=== PATIENT | female | born 1950 | race Caucasian/White ===

== ENCOUNTER 2019-08-11 09:36 | Outpatient (CLI) | payer MEDICARE, OTHER, SELFPAY ==
--- NOTE | 2019-08-11 09:54 | MM_ITS ---
WS: [id number] BILATERAL SCREENING DIGITAL MAMMOGRAM WITH CAD HISTORY: SCREENING COMPARISON: 04/22/2018 and 04/10/2017 Bilateral CC and MLO views submitted. Computer aided detection analyzed. Breast composition: The breasts are heterogeneously dense, which may obscure small masses. No suspici ous masses, microcalcifications or architectural distortion. Benign calcification central LEFT breast . MM/[place] [id number] IMPRESSION: BI-RADS: 2-Benign FOLLOW UP: 1 Year Follow-up
== END 2019-08-11 09:37 | disposition home or self-care (01) ==
LOC: RADSHAW 09:42
PROVIDERS: PCP Nurse Practitioner; Visit Provider Nurse Practitioner
DX: Z12.31 Encounter for screening mammogram for malignant neoplasm of breast (principal)
CPT/HCPCS: 77067

== ENCOUNTER 2020-09-12 12:51 | Outpatient (CLI) | payer MEDICARE, OTHER, SELFPAY ==
--- NOTE | 2020-09-12 12:58 | XR_ITS ---
WS: [id number] Left hip, AP and frog leg views, 09/12/2020 Clinical Data: ACUTE LOW BACK PAIN W/LEFT SIDED SCIATICA Comparison: None. Findings: No fractures or dislocations are seen. The left hip joint is intact. There is a prominent acetabular lip. No sclerosis, erosion or narrowing is seen. The soft tissues are not remarkable. The adjacent pe lvis is normal. The left SI joint and the pubic symphysis are normal. XR/XR hip LT 2-3V wo/w pel* [id number] Impression: Mild osteoarthritis of the left hip. Tonnis classification: grade 1: sclerosis of femoral head and acetabulum or sli ght joint space narrowing or slight lipping at joint margins
== END 2020-09-12 12:52 | disposition home or self-care (01) ==
PROVIDERS: PCP Nurse Practitioner; Visit Provider Nurse Practitioner
DX: M54.42 Lumbago with sciatica, left side (principal); M16.12 Unilateral primary osteoarthritis, left hip
CPT/HCPCS: 73502

== ENCOUNTER 2020-10-03 13:04 | Outpatient (CLI) | payer MEDICARE, OTHER, SELFPAY ==
--- NOTE | 2020-10-03 13:14 | MM_ITS ---
WS: [id number] BILATERAL DIGITAL SCREENING MAMMOGRAPHY WITH CAD CLINICAL INFORMATION: SCREENING HISTORY: Screening mammogram. No current complaints. COMPARISON: August 11, 2019 TECHNIQUE: Bilateral CC and MLO views. FINDINGS: The breasts are composed of heterogeneous fibroglandular density tissue, which can limit the detectio n of small underlying mass lesions. A few punctate calcifications. No suspicious mass, asymmetry, ashkan cifications, or architectural distortion. No evidence of malignancy. MM/[place] [id number] IMPRESSION: BI-RADS: 2-Benign FOLLOW UP: 1 Year Follow-up Recommend return to annual screening mammography.
== END 2020-10-03 13:05 | disposition home or self-care (01) ==
LOC: RADSHAW 13:12
PROVIDERS: PCP Nurse Practitioner; Visit Provider Nurse Practitioner
DX: Z12.31 Encounter for screening mammogram for malignant neoplasm of breast (principal)
CPT/HCPCS: 77067

== ENCOUNTER 2021-11-11 12:46 | Outpatient (CLI) | payer MEDICARE, SELFPAY ==
--- NOTE | 2021-11-11 13:19 | MM_ITS ---
WS: [id number] BILATERAL 3D TOMOSYNTHESIS DIGITAL SCREENING MAMMOGRAPHY WITH CAD CLINICAL INFORMATION: SCREENING HISTORY: Screening mammogram. No current complaints. COMPARISON: October 03, 2020 TECHNIQUE: Bilateral CC and MLO views. FINDINGS: The breasts are composed of heterogeneous fibroglandular density tissue, which can limit the detectio n of small underlying mass lesions. A few tiny punctate calcifications. No suspicious mass, asymmetry , calcifications, or architectural distortion. No evidence of malignancy. MM/[place] [id number] IMPRESSION: BI-RADS: 2-Benign FOLLOW UP: 1 Year Follow-up Recommend return to annual screening mammography.
== END 2021-11-11 12:47 | disposition home or self-care (01) ==
LOC: RAD 12:50
PROVIDERS: PCP Nurse Practitioner Family; Visit Provider Nurse Practitioner Family
DX: Z12.31 Encounter for screening mammogram for malignant neoplasm of breast (principal)
CPT/HCPCS: 77063; 77067

== ENCOUNTER 2022-07-09 11:28 | Outpatient (CLI) | payer MEDICARE, SELFPAY ==
--- NOTE | 2022-07-09 11:47 | CT_ITS ---
WS: [id number] CT NECK WITH CONTRAST HISTORY: RIGHT ANTERIOR CERVICAL LYMPH NODE TECHNIQUE: Contiguous 5 mm axial images are performed through the neck with intravenous contrast. Sag ittal and coronal reformats are also submitted. All CT scans at [facility] use at least one o f these dose optimization techniques: automated exposure control; mA and/or kV adjustment per patient size (includes targeted exams where dose is matched to clinical indication); or iterative reconstruc tion. CONTRAST: CONTRAST: Omnipaque 350; 100 mL IV. DLP: 133.09 mGy.cm COMPARISON: None available. Prominence and thickening and increased vascularity involving the lingual tonsils bilaterally but gre atest on the RIGHT. There is asymmetric soft tissue involving the RIGHT lingual tonsil measuring 13 x 11 mm. Oral surface of the tonsil is very irregular. Direct visualization is recommended. The mild a symmetry and increased soft tissue extends into the RIGHT palatine tonsil with narrowing of the RIGHT vallecula. Torus tubarius and fossa of Rosenmuller and parapharyngeal fat are normal. Benign-appearing cervical chain lymph nodes. Marker is placed along the RIGHT lateral neck. There is an underlying normal-appearing lymph node measuring 5 mm in short axis diameter. No enlarged lymph no reece. Visualized submandibular glands, parotid glands and thyroid are negative. Degenerative disc disease is advanced at C5-6 and C6-7. Visualized portions of the skull base demonstrate no abnormalities. Orbits and globes are within norm al limits. No soft tissue masses. Marked mucoperiosteal thickening in the sinus cavities bilaterally. Lung apices are clear. CT/CT neck w con* [id number] IMPRESSION: 1. No significant cervical chain lymphadenopathy. Palpable marker along the RI GHT neck corresponds to a normal-appearing lymph node. 2. Enlarged, mildly hypervascular lingual tonsils. Slightly greater enlargemen t on the RIGHT measuring 13 x 11 mm. Bilateral finding. May be normal for this patient but is masslike and needs to be further evaluated by ENT to exclude tina plasm involving the base of the tongue and tonsils.
[2022-07-09 12:10] LABS: Blood Urea Nitrogen 10 mg/dL (8-23)
[2022-07-09] MEDS: iohexol 350 mg/mL 500 mL Btl (per mL) IV (12:30)
== END 2022-07-09 11:29 | disposition home or self-care (01) ==
PROVIDERS: PCP Nurse Practitioner Family; Visit Provider Family Medicine
DX: R59.0 Localized enlarged lymph nodes (principal); J35.1 Hypertrophy of tonsils
CPT/HCPCS: 70491; 82565; 84520; Q9967

== ENCOUNTER → 2022-08-08 07:35 | Outpatient (BNVA) | payer MEDICARE, SELFPAY | PROVIDERS: PCP Nurse Practitioner Family; Visit Provider Otolaryngology | DX: Z71.1 Person with feared health complaint in whom no diagnosis is made (principal); M26.621 Arthralgia of right temporomandibular joint | CPT/HCPCS: 99203 ==

== ENCOUNTER 2022-11-19 12:19 | Outpatient (CLI) | payer MEDICARE, SELFPAY ==
--- NOTE | 2022-11-19 13:28 | MM_ITS ---
WS: [id number] BILATERAL SCREENING DIGITAL TOMOSYNTHESIS MAMMOGRAM WITH CAD HISTORY: SCREENING COMPARISON: 11/11/2021 and 10/03/2020 Bilateral CC and MLO views with tomosynthesis and synthetic mammography submitted. Computer aided det ection analyzed. Breast composition: There are scattered areas of fibroglandular density. No suspicious masses, microc alcifications or architectural distortion. IMPRESSION: MM/[place] [id number] BI-RADS: 1-Negative FOLLOW UP: 1 Year Follow-up
== END 2022-11-19 12:20 | disposition home or self-care (01) ==
LOC: RAD 12:19 → MOBLMAM 13:27
PROVIDERS: PCP Nurse Practitioner Family; Visit Provider Nurse Practitioner Family
DX: Z12.31 Encounter for screening mammogram for malignant neoplasm of breast (principal)
CPT/HCPCS: 77063; 77067

== ENCOUNTER 2023-11-24 12:16 | Outpatient (CLI) | payer MEDICARE, SELFPAY ==
--- NOTE | 2023-11-24 12:23 | XRR_ITS ---
PROCEDURE INFORMATION: Exam: XR Lumbosacral Spine Exam date and time: 11/24/2023 12:33 PM Age: 73 years old Clinical indication: Low back pain; Patient HX: Lower back pain when lying down, pain radiates from neck down to lower back TECHNIQUE: Imaging protocol: Radiologic exam of the lumbosacral spine. Views: 4 or 5 views. COMPARISON: CR XR thoracolumbar junct [id number] 11/24/2023 12:33 PM FINDINGS: Bones/joints: Mild dextrocurvature of the lumbar spine. Minimal anterolisthesis of L5 on S1 by 2 mm. Anterolisthesis of L4 on L5 by proximally 4 mm. Moderate degenerative disc disease from L1 through L4. Marked degenerative disc disease lower thoracic spine. Moderate degenerative changes lower lumbar spine facet joints. No evidence of fracture or pars defect. Soft tissues: Unremarkable. Gastrointestinal tract: Moderate amount of colonic stool. XR/XR lumbar spine min 4V [id number] IMPRESSION: No acute pathology. Dextrocurvature with features of degenerative disc and facet disease as detailed above.
--- NOTE | 2023-11-24 12:23 | XRR_ITS ---
PROCEDURE INFORMATION: Exam: XR Thoracolumbar Spine Exam date and time: 11/24/2023 12:33 PM Age: 73 years old Clinical indication: Low back pain; Patient HX: Lower back pain when lying down, pain radiates from neck down to lower back TECHNIQUE: Imaging protocol: Radiologic exam of the thoracolumbar spine. Views: 2 views. COMPARISON: CR XR lumbar spine min 4V [id number] 11/24/2023 12:33 PM FINDINGS: Bones/joints: Moderate degenerative disc disease of the visualized thoracolumbar spine. No acute fracture or dislocation. Minimal reverse listhesis of L1 on L2. Soft tissues: Unremarkable. Gastrointestinal tract: Moderate amount of colonic stool. XR/XR thoracolumbar junct [id number] IMPRESSION: Moderate degenerative disc disease with no acute pathology evident.
--- NOTE | 2023-11-24 12:29 | MM_ITS ---
WS: [id number] BILATERAL 3D TOMOSYNTHESIS DIGITAL SCREENING MAMMOGRAPHY WITH CAD CLINICAL INFORMATION: SCREENING HISTORY: Screening mammogram. No current complaints. COMPARISON: 2022 TECHNIQUE: Bilateral CC and MLO views. FINDINGS: The breasts are composed of heterogeneous fibroglandular density tissue, which can limit the detectio n of small underlying mass lesions. No suspicious mass, asymmetry, calcifications, or architectural d istortion. No evidence of malignancy. MM/[place] [id number] IMPRESSION: DENSITY:The breasts are heterogeneously dense, which may obscure small masses. BI-RADS: 1 - Negative FOLLOW UP: 1 Year Follow-up Recommend return to annual screening mammography.
== END 2023-11-24 12:17 | disposition home or self-care (01) ==
LOC: RAD 12:17
PROVIDERS: PCP Nurse Practitioner Family; Visit Provider Nurse Practitioner Family
DX: Z12.31 Encounter for screening mammogram for malignant neoplasm of breast (principal); R92.333 Mammographic heterogeneous density, bilateral breasts; M51.85 Other intervertebral disc disorders, thoracolumbar region; K59.00 Constipation, unspecified; M51.36 Other intervertebral disc degeneration, lumbar region; M43.16 Spondylolisthesis, lumbar region
CPT/HCPCS: 72080; 72110; 77063; 77067

== ENCOUNTER 2024-03-14 11:21 | Outpatient (CLI) | payer MEDICARE, SELFPAY ==
--- NOTE | 2024-03-14 11:27 | MR_ITS ---
WS: [id number] MRI LUMBAR SPINE NONCONTRAST TECHNIQUE: Sagittal T1, T2 and STIR imaging. Axial T1 and T2 imaging. CLINICAL INFORMATION: DJD/LUMBAR SPINE PAIN/SPONDYLOSIS W/O MYELOPATHY COMPARISON: None. FINDINGS: Mild lumbar curve. No acute compression. Slight anterolisthesis L3 on L4 and L4 on L5. No high-grade central canal stenosis. L1-L2: Mild annular bulging. Mild facet arthropathy. Spinal canal is patent. Small RIGHT foraminal pr otrusion with mild RIGHT foraminal narrowing. L2-L3: Mild annular bulging. Mild facet arthropathy. Mild LEFT foraminal narrowing. L3-L4: Slight anterolisthesis L3 on L4. Mild disc bulging with moderate facet arthropathy. Mild centr al canal stenosis. Narrowing of the subarticular recess bilaterally. Small LEFT foraminal protrusion impinges the proximal exiting LEFT L3 nerve root. Mild RIGHT foraminal narrowing. L4-L5: Grade 1 anterolisthesis. Disc bulging with moderate central canal stenosis. Impingement caridad sing L5 nerve roots. Facet arthropathy with ligamentum flavum hypertrophy. Mild LEFT greater than RIG HT foraminal narrowing. L5-S1: Slight anterolisthesis L5 on S1. Disc bulging slightly impinges the traversing LEFT greater th an RIGHT S1 nerve roots. Advanced facet arthropathy. Foramen are patent. Visualized pelvic bony structures: Normal. Paravertebral soft tissues: Normal. MR/MR lumbar spine wo con* [id number] IMPRESSION: 1. Mild central canal stenosis L3-4 and moderate central canal stenosis L4-5 w ith impingement traversing L5 nerve roots bilaterally. Grade 1 anterolisthesis L4 on L5. 2. Disc bulge L5-S1 with impingement traversing LEFT greater than RIGHT S1 ner ve roots. 3. Advanced facet arthropathy L4-L5 and L5-S1. 4. Small LEFT foraminal protrusion L3-4 with impingement on the exiting LEFT L 3 nerve root. 5. Mild LEFT L4-5 foraminal narrowing.
== END 2024-03-14 11:22 | disposition home or self-care (01) ==
PROVIDERS: PCP Nurse Practitioner Family; Visit Provider Nurse Practitioner Family
DX: M47.816 Spondylosis without myelopathy or radiculopathy, lumbar region (principal); M47.896 Other spondylosis, lumbar region; M51.26 Other intervertebral disc displacement, lumbar region; M43.16 Spondylolisthesis, lumbar region; M47.898 Other spondylosis, sacral and sacrococcygeal region
CPT/HCPCS: 72148

== ENCOUNTER → 2024-03-24 08:45 | Outpatient (BNVA) | payer MEDICARE, SELFPAY | PROVIDERS: PCP Nurse Practitioner Family; Visit Provider Nurse Practitioner Family | DX: L82.1 Other seborrheic keratosis (principal); L81.4 Other melanin hyperpigmentation; L57.8 Other skin changes due to chronic exposure to nonionizing radiation | CPT/HCPCS: 17000; 17003; 99203 ==

== ENCOUNTER → 2024-06-21 10:51 | Outpatient (BNVA) | payer MEDICARE, SELFPAY | PROVIDERS: PCP Nurse Practitioner Family; Visit Provider Surgery | DX: Z12.11 Encounter for screening for malignant neoplasm of colon (principal) | CPT/HCPCS: 99024; 99203 ==

== ENCOUNTER 2024-07-14 07:51 | Day surgery (SDC) | payer MEDICARE, SELFPAY ==
--- NOTE | 2024-07-14 08:00 | W.PM.OPSUD ---
Surgery/Procedure H&P Update DATE OF PROCEDURE: July 14, 2024 DATE H&P PERFORMED: 06/21/24 H&P UPDATE INFORMATION: I have reviewed H&P completed within last 30 days, I have examined patient prior to procedure, No changes to prior documentation, H&P is in [facility] EMR on date indicated and Risks and benefits of the procedure reviewed PLANNED PROCEDURE: Operation Date: 07/14/24 09:40 Proposed Procedures p Colonoscopy [id number], G0121, Z12.11(Not Applicable) - Otis Menendez MD
[2024-07-14 08:03] VITALS: BP 159/73; PULSE 86; RESP 16; TEMP 36.1; O2SAT 93; BMI 26.6
[2024-07-14] MEDS: sodium chloride 0.9% 1,000 ML 15 ML IV (08:10)
--- NOTE | 2024-07-14 08:51 | ANES.PREANE2 ---
Pre-Anesthetic Assessment Height/Weight: Height 1.57 m Weight 66.224 kg Temp Pulse Resp BP Pulse Ox O2 Del Method 96.9 F L 86 16 159/73 93 Room Air 07/14/24 08:03 07/14/24 08:03 07/14/24 08:03 07/14/24 08:03 07/14/24 08:03 07/14/24 08:03 Operation Date: 07/14/24 09:40 Proposed Procedures p Colonoscopy [id number], G0121, Z12.11(Not Applicable) - Otis Menendez MD Familial anesthetic complications: None Was Beta Rg taken within 24 hours: N/A Was Clonidine taken within 24 hours: N/A Last intake: Intake Last Liquid Date 07/13/24 Last Liquid Time 22:00 Last Solid Date 07/12/24 Last Solid Time 18:00 Social No alcohol and No tobacco Airway Submandibular: within normal limits Cervical ROM: within normal limits Mallampati: Class III Dentition: full History/ROS No significant history except as noted and No significant complaints Pulmonary Cough CV/HEM Hypertension None reported Hepatic None reported GI Gastroesophageal Reflux Disease (Controlled with meds. no symptoms this morning) Metabolic Hyperlipidemia [facility] Rheumatoid Arthritis Neuropsych Anxiety Anesthetic Plan ASA status: 2 Anesthesia: Anesthesia Evaluation, General and MAC Risk of > 500 ml blood loss (7ml/kg in children): No Medications/Allergies Home Medications ?Medication ?Instructions ?Recorded ?Confirmed ?Last Taken ?Type aspirin 81 mg tablet,delayed 81 mg PO DAILY 08/08/22 07/14/24 07/12/24 History release (Adult Aspirin Regimen) atorvastatin 10 mg tablet (Lipitor) 10 mg PO QPM 08/08/22 07/14/24 07/13/24 History potassium chloride 10 mEq 10 meq PO DAILY 08/08/22 07/14/24 07/13/24 History tablet,extended release tramadol 50 mg tablet 50 mg PO PRN PRN Pain 08/08/22 07/14/24 Unknown History alprazolam 0.25 mg tablet 0.25 mg PO DAILY PRN Anxiety 06/21/24 07/14/24 Unknown History amlodipine 10 mg tablet 10 mg PO DAILY 06/21/24 07/14/24 07/14/24 History famotidine 20 mg tablet (Acid 20 mg PO DAILY PRN heart burn 04/04/1607/14/24 07/13/24 History Compugraph Operator (famotidine)) hydrochlorothiazide 25 mg tablet 25 mg PO DAILY 06/21/24 07/14/24 07/14/24 History losartan 25 mg tablet 25 mg PO DAILY 06/21/24 07/14/24 07/14/24 History ondansetron 8 mg disintegrating 8 mg PO Q8H PRN nausea and 07/08/24 07/14/24 Unknown Rx tablet vomiting #3 tabs Allergies Allergy/AdvReac Type Severity Reaction Status Date / Time No Known Allergies Allergy Verified 07/11/24 09:39 Current Medications Generic Name Dose Route Start Last Admin Trade Name Freq PRN Reason Stop Dose Admin Sodium Chloride 1,000 mls @ 15 mls/hr 07/14/24 07:56 07/14/24 08:10 Sodium Chloride 0.9% IV 07/15/24 07:55 15 mls/hr .Q24H PRN Administration COLONOSCOPY FLUIDS PFSH Anesthesia Medical History Hypertension Hyperlipemia Surgical History Hx of carpal tunnel repair Social History Smoking and tobacco/nicotine status: never used tobacco/nicotine Data Anesthesia 07/14/24 08:33 Cardiac Studies: No Data to Display
[2024-07-14 09:06] LABS: Anion Gap 14.8 (5-19); Blood Urea Nitrogen 14 mg/dL (8-23); Calcium 9.8 mg/dL (8.5-10.5); Carbon Dioxide 30 mmol/L (22-29); Chloride 99 mmol/L (98-107); Creatinine Clr Calc Pharmacy 55.9115; Glucose 112 mg/dL (65-115); Osmolality Calculated 291 mOsm/kg (285-295); Potassium 3.8 mmol/L (3.5-5.1); Sodium 140 mmol/L (136-145)
[2024-07-14 09:35] VITALS: BP 133/61; PULSE 67; RESP 12; TEMP 36.1; O2SAT 94
[2024-07-14 09:48] VITALS: BP 150/71; PULSE 57; RESP 16; O2SAT 100
--- NOTE | 2024-07-14 10:06 | ANE.PACU2 ---
Inpatient post-anesthesia follow up: Airway intact: Yes Vital signs: Temperature 97.0 F Pulse Rate 57 Respiratory Rate 16 Blood Pressure 150/71 Pulse Oximetry 100 Oxygen Delivery Me thod Room Air Oxygen Flow Rate Fraction of Inspir ed Oxygen Hydration adequate: Yes Nausea and vomiting: No Pain level: 1 Mental status: Baseline
== END 2024-07-14 10:06 | disposition home or self-care (01) ==
PROVIDERS: Student in an Organized Health Care Education/Training Program; PCP Nurse Practitioner Family; Visit Provider Surgery
PROC: 0DJD8ZZ Inspection of Lower Intestinal Tract, Via Natural or Artificial Opening Endoscopic (ICD-10-PCS; CPT 45378; principal; 2024-07-14 09:40)
DX: R19.5 Other fecal abnormalities (principal); K21.9 Gastro-esophageal reflux disease without esophagitis; M06.9 Rheumatoid arthritis, unspecified; E78.5 Hyperlipidemia, unspecified; I10 Essential (primary) hypertension; Z79.82 Long term (current) use of aspirin; Z79.899 Other long term (current) drug therapy
CPT/HCPCS: 45378; 80048; J2704; J7030

== ENCOUNTER 2024-11-18 14:52 | Emergency (ER) | payer MEDICARE, OTHER, SELFPAY ==
--- OUTSIDE RECORDS SUMMARY | 2024-11-18 14:57 | XMS_ITS | Encounter Summary ---
Author Organization [facility] Address [address] [place] [address] Care Team Providers Care Cpc Name Role Phone Non-Staff, Physician Primary Care Provider Unava ilable Encounter Details Date Type Department Care Team (Latest Contact Info) Description 05/25/2000 Outpatient Historical [facility] General and Tra[facility] Surgery-[address] [place] [address] Lump or mass in breast (Primary Dx) Social History Tobacco Use Types Packs/Day Years Used Date Smoking Tobacco: Never Assessed Comments Unknown Sex and Gender Information Value Date Recorded Sex Assigned at Not on file 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
--- OUTSIDE RECORDS SUMMARY | 2024-11-18 14:57 | XMS_ITS | Encounter Summary ---
Author Organization [facility] Address [address] 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
--- OUTSIDE RECORDS SUMMARY | 2024-11-18 14:57 | XMS_ITS | Encounter Summary ---
Author Organization [facility] Address [address] [place] [address] Care Team Providers Care Secondary Art Teacher Name Role Phone Non-Staff, Physician Primary Care Provider Unava ilable Encounter Details Date Type Department Care Team (Latest Contact Info) Description 02/20/2006 Outpatient [facility] Breast Center [facility] [address] [place] [address] Ammon Calvin DO NO ADDRESS ON FILE Other Screening Mammogram (Primary Dx) Social History Tobacco Use Types Packs/Day Years Used Date Smoking Tobacco: Never Assessed Comments Unknown Sex and Gender Information Value Date Recorded Sex Assigned at Not on file 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
--- OUTSIDE RECORDS SUMMARY | 2024-11-18 14:57 | XMS_ITS | Clinical Summary ---
Author Organization [facility] Address [address] [facility] Attn: [place] [address] Care Team Providers Care Merchandise Appraiser Name Role Phone Non-Staff, Physician Primary Care Provider Unava ilable Allergies No known active allergies Medications Nebulizer & Compressor For Neb DeviceIndicatio ns:Pneumonia, organism unspecified(486 ) As directed DX: pneumonia. 1 Device 0 06/02/2014 Active amLODIPine (NORVASC) 10 mg tablet Take 10 mg by mouth daily. Active atorvastatin (LIPITOR) 10 mg tablet Take 10 mg by mouth daily. Active hydroCHLOROthia zide 12.5 mg tablet Take 12.5 mg by mouth daily. Active traMADoL (ULTRAM) 50 mg tablet Take 50 mg by mouth every 6 hours as needed for Pain. Active potassium chloride (KLOR-CON) 20 mEq Extended Release tablet Take 20 mEq by mouth daily. Active losartan (COZAAR) 25 mg tablet Take 25 mg by mouth daily. Active aspirin (JUANITO CHEWABLE) 81 mg Tablet, Chewable Take 81 mg by mouth daily. Active Active Problems Problem Noted Date Diagnosed Date HTN (hypertension) 02/14/2014 Immunizations Immunization Administration Dates Next Due (TDVAX)(7 YRS UP) TETANUS AN D DIPHTHERIA TOXOIDS, ADSORBED (2 LF OF TETANUS TOXOID AND 2 LF OF DIPHTHERIA TOXOID), 0.5ML (PF), IM 06/25/2004 Social History Tobacco Use Types Packs/Day Years Used Date Smoking Tobacco: Never Smokeless Tobacco: Never Alcohol Use Standard Drinks/Week Comments Not Asked 0 (1 standard drink = 0.6 oz pur e alcohol) Feeling Safe Answer Date Recorded Are you in a relationship wi th someone who hurts you emotionally and/or physically? 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 Gender Identity Not on file Sexual Orientation Not on file Last Filed Vital Signs Vital Sign Reading Time Taken Comments Blood Pressure 125/69 07/08/2023 11:24 AM CDT Pulse 64 07/08/2023 11:24 AM CDT Temperature 36.4 C (97.6 F) 07/08/2023 11:24 AM CDT Respiratory Rate 16 07/08/2023 11:24 AM CDT Oxygen Saturation 99% 07/08/2023 11:24 AM CDT Inhaled Oxygen Concentration - - Weight 65.8 kg (145 lb) 07/08/2023 9:01 AM CDT Height 154.9 cm (5' 1 ) 07/08/2023 9:01 AM CDT Body Mass Index 27.4 07/08/2023 9:01 AM CDT Plan of Treatment Health Maintenance Due Date Last Done Comments BREAST CANCER SCREENING 1990 COLORECTAL SCREENING 07/23/1995 Colorectal Cancer Screening 07/23/1995 FIT-DNA Q 3 years 07/23/1995 FIT/FOBT Q 1 year 07/23/1995 Flex Sig/CT Colonography Q 5 years 07/23/1995 PNEUMOCOCCAL VACCINE 50+ YEA RS (1 of 1 - PCV) 2000 ZOSTER VACCINE (1 of 2) 2000 DTAP/TDAP/TD VACCINES (1 - Tdap) 06/26/2004 06/26/19 05 OSTEOPOROSIS SCREENING 05/06/2021 05/06/2016, 2016 INFLUENZA VACCINE (#1) 2024 RSV VACCINE (60+ or ) (1 - 1-dose 75+ series) 2025 Medical Devices Implanted Type Area Delivery Stock Clerk Device Identifier Shelf Expiration Date Model / Serial / Lot Lens Iol Casper Watson 25.0 [id number] - [id number] Implanted:Qty: 1 on 06/10/2023 by Augustine Rosales MD at [facility] Lens Right: Eye [employer]. 12/17/2024 [id number] / [id number] / Lens Iol Casper Watson 26.0 [id number] - [id number] Implanted:Qty: 1 on 07/08/2023 by Augustine Rosales MD at [facility] Lens Left: Eye [employer]. 07/26/2023 [id number] / [id number] / Procedures Procedure Name Priority Date/Time Associated Diagnosis Comments XR DEXA BONE DENSITY AXIAL 1 OR MORE SITES Routine 05/06/2016 1:33 PM AIRCRAFT AIR CONDITIONING MECHANIC Encounter for screening for osteoporosis from Last 3 Months or Most Recently Relevant to Health Maintenance Results * XR DEXA BONE DENSITY AXIAL 1 OR MORE SITES (05/06/2016 1:33 PM AIRCRAFT AIR CONDITIONING MECHANIC) Anatomical Region Laterality Modality Other Impressions 05/06/2016 9:55 PM AIRCRAFT AIR CONDITIONING MECHANIC At present, there is moderate osteopenia; there is currently moderate risk of fracture as predicted by bone mineral density at left femoral neck. Follow-up examination in one year is recommended. Definitions: T-score> -0.99 = Normal T-score-1.00 to -1.49 = mild osteopenia T-score-1.50 to -1.99 = moderate osteopenia T-score-2.00 to -2.49 = severe osteopenia T-score< -2.50 = osteoporosis N.B. Changes in density of <=0.05 g/cm2 are not statistically significant. RECOMMENDATIONS: Normal: Low risk for fracture - f/u in 2 years Mild/Mod osteopenia: Moderate risk for fracture - f/u in 1 year Severe osteopenia: Moderate/high risk for fracture - f/u in 1 year Osteoporosis: High risk for fracture - f/u in 1 year NOF guidelines recommend consideration of FDA-approved medical therapies in patients with FRAX determined 10-year probabilities of hip/major osteoporosis-related fractures equal or greater than 3%/20% respectively. Consider assessing fracture risk using the FRAX analysis tool for guidance of clinical management available online at www.shef.ac.uk/FRAX/. Enter [employer]ia for Select DXA and the Femoral Neck BMD value. [id number] Narrative 05/06/2016 9:55 PM AIRCRAFT AIR CONDITIONING MECHANIC DEXA Evaluation of the Lumbar Spine and Left Proximal Femur Reason for Consultation: Osteoporosis screening Evaluation of bone mineral density. The following absorptiometry data were obtained. The quality of this examination is acceptable with regards to count density, processed images, data display and lack of important artifacts (including but not limited to motion and attenuation artifacts). Serial examination number 1. L1-L4 BMD (g/cm2): 0.918 Adult T-score: -1.2 Adult Z-score: 0.6 Left Femoral Neck BMD (g/cm2): 0.640 Adult T-score: -1.9 Adult Z-score: -0.3 Left Total Hip BMD (g/cm2): 0.775 Adult T-score: -1.4 Adult Z-score: -0.1 Procedure Note Ivan Chavez MD - 05/15/2021 DEXA Evaluation of the Lumbar Spine and Left Proximal Femur Reason for Consultation: Osteoporosis screening Evaluation of bone mineral density. The following absorptiometry data were obtained. The quality of this examination is acceptable with regards to count density, processed images, data display and lack of important artifacts (including but not limited to motion and attenuation artifacts). Serial examination number 1. L1-L4 BMD (g/cm2): 0.918 Adult T-score: -1.2 Adult Z-score: 0.6 Left Femoral Neck BMD (g/cm2): 0.640 Adult T-score: -1.9 Adult Z-score: -0.3 Left Total Hip BMD (g/cm2): 0.775 Adult T-score: -1.4 Adult Z-score: -0.1 IMPRESSION At present, there is moderate osteopenia; there is currently moderate risk of fracture as predicted by bone mineral density at left femoral neck. Follow-up examination in one year is recommended. Definitions: T-score> -0.99 = Normal T-score-1.00 to -1.49 = mild osteopenia T-score-1.50 to -1.99 = moderate osteopenia T-score-2.00 to -2.49 = severe osteopenia T-score< -2.50 = osteoporosis N.B. Changes in density of <=0.05 g/cm2 are not statistically significant. RECOMMENDATIONS: Normal: Low risk for fracture - f/u in 2 years Mild/Mod osteopenia: Moderate risk for fracture - f/u in 1 year Severe osteopenia: Moderate/high risk for fracture - f/u in 1 year Osteoporosis: High risk for fracture - f/u in 1 year NOF guidelines recommend consideration of FDA-approved medical therapies in patients with FRAX determined 10-year probabilities of hip/major osteoporosis-related fractures equal or greater than 3%/20% respectively. Consider assessing fracture risk using the FRAX analysis tool for guidance of clinical management available online at www.shef.ac.uk/FRAX/. Enter Alitalia for Select DXA and the Femoral Neck BMD value. [id number] Tequila Duncan STATEMENT CLERK DIAGNOSTIC IMAGING ORDERABLES F inal Result from Last 3 Months or Most Recently Relevant to Health Maintenance Insurance [facility] MEDICARE HMO Advance Directives For more information, please contact: [phone] * Full Code (Latest Code Status on File) Date Activated Date Inactivated Comments 07/08/2023 10:53 AM 07/08/2023 1:44 PM Care Teams Merchandise Appraiser Relationship Specialty Start Date End Date Non-Staff, Physician NO ADDRESS ON FILE PCP - General 07/18/13
--- OUTSIDE RECORDS SUMMARY | 2024-11-18 14:57 | XMS_ITS | Encounter Summary ---
Author Organization [facility] Address [address] [place] [address] Care Team Providers Care Cost Specialist Name Role Phone Non-Staff, Physician Primary Care Provider Unava ilable Encounter Details Date Type Department Care Team (Latest Contact Info) Description 02/26/2006 Outpatient Historical [facility] Medicine [place] [address] [facility] [address] [place] [phone] Jacey Senior NP NO ADDRESS ON FILE Routine Medical Exam (Primary Dx); Atrophic Vaginitis; Cough Social History Tobacco Use Types Packs/Day Years Used Date Smoking Tobacco: Never Assessed Comments Unknown Sex and Gender Information Value Date Recorded Sex Assigned at Not on file Legal Sex Female 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
--- OUTSIDE RECORDS SUMMARY | 2024-11-18 14:57 | XMS_ITS | Encounter Summary ---
Author Organization [facility] Address [address] [place] [address] Care Team Providers Care Cut Out Machine Operator Name Role Phone Non-Staff, Physician Primary Care Provider Unava ilable Encounter Details Date Type Department Care Team (Latest Contact Info) Description 07/15/1999 Outpatient Historical [facility] Medicine [place] [address] [facility] [address] [place] [phone] Ammon Calvin DO NO ADDRESS ON FILE Streptococcal sore throat (Primary Dx) Social History Tobacco Use Types Packs/Day Years Used Date Smoking Tobacco: Never Assessed Comments Unknown Sex and Gender Information Value Date Recorded Sex Assigned at Not on file 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
--- OUTSIDE RECORDS SUMMARY | 2024-11-18 14:57 | XMS_ITS | Encounter Summary ---
Author Organization [facility] Address [address] [place] [address] Care Team Providers Care Ticket Maker Name Role Phone Non-Staff, Physician Primary Care Provider Unava ilable Encounter Details Date Type Department Care Team (Latest Contact Info) Description 03/21/1999 Outpatient Historical [facility] Medicine [place] [address] [facility] [address] [place] [phone] Lakshmi Vigil NO ADDRESS ON FILE Acute bronchitis (Primary Dx) Social History Tobacco Use Types Packs/Day Years Used Date Smoking Tobacco: Never Assessed Comments Unknown Sex and Gender Information Value Date Recorded Sex Assigned at Not on file 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
--- OUTSIDE RECORDS SUMMARY | 2024-11-18 14:57 | XMS_ITS | Encounter Summary ---
Author Organization [facility] Address [address] [place] [address] Care Team Providers Care Community Relations Manager Name Role Phone Non-Staff, Physician Primary Care Provider Unava ilable Encounter Details Date Type Department Care Team (Latest Contact Info) Description 01/20/2000 Outpatient Historical [facility] Family Medicine [place] [address] [facility] [address] [place] [phone] Ammon Calvin DO NO ADDRESS ON FILE Lump or mass in breast (Primary Dx) Social History Tobacco Use Types Packs/Day Years Used Date Smoking Tobacco: Never Assessed Comments Unknown Sex and Gender Information Value Date Recorded Sex Assigned at Not on file Legal Sex Female 4:40 AM CUSTOMER SERVICE AGENT Gender Identity Not on file Sexual Orientation Not on file documented as of this encounter Plan of Treatment Not on file documented as of this encounter Visit Diagnoses Diagnosis Lump or mass in breast- Primary documented in this encounter Care Teams Community Relations Manager Relationship Specialty Start Date End Date Non-Staff, Physician NO ADDRESS ON FILE PCP - General 07/18/13 documented as of this encounter
--- OUTSIDE RECORDS SUMMARY | 2024-11-18 14:57 | XMS_ITS | Encounter Summary ---
Author Organization [facility] Address [address] [place] [address] Care Team Providers Care Hat Blocking Machine Operator Name Role Phone Non-Staff, Physician Primary Care Provider Unava ilable Encounter Details Date Type Department Care Team (Latest Contact Info) Description 01/06/2000 Outpatient Historical [facility] Family Medicine- [place] [address] [place] [address] Lakshmi Vigil NO ADDRESS ON FILE Acute upper respiratory infections of unspecified site (Primary Dx) Social History Tobacco Use Types Packs/Day Years Used Date Smoking Tobacco: Never Assessed Comments Unknown Sex and Gender Information Value Date Recorded Sex Assigned at Not on file Legal Sex Female 4:40 AM LAND SALES AGENT Gender Identity Not on file Sexual Orientation Not on file documented as of this encounter Plan of Treatment Not on file documented as of this encounter Visit Diagnoses Diagnosis Acute upper respiratory infections of unspecified site- Primary documented in this encounter Care Teams Hat Blocking Machine Operator Relationship Specialty Start Date End Date Non-Staff, Physician NO ADDRESS ON FILE PCP - General 07/18/13 documented as of this encounter
--- OUTSIDE RECORDS SUMMARY | 2024-11-18 14:57 | XMS_ITS | Encounter Summary ---
Author Organization [facility] Address [address] [place] [address] Care Team Providers Care Superintendent System Operation Name Role Phone Non-Staff, Physician Primary Care Provider Unava ilable Encounter Details Date Type Department Care Team (Latest Contact Info) Description 02/06/2000 Outpatient Historical [facility] General and Trauma Surgery-[address] [place] [address] Diffus cystic mastopathy (Primary Dx) Social History Tobacco Use Types Packs/Day Years Used Date Smoking Tobacco: Never Assessed Comments Unknown Sex and Gender Information Value Date Recorded Sex Assigned at Not on file 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
--- OUTSIDE RECORDS SUMMARY | 2024-11-18 14:57 | XMS_ITS | Encounter Summary ---
Author Organization [facility] Address [address] [place] [address] Care Team Providers Care Recreation Facility Manager Name Role Phone Non-Staff, Physician Primary Care Provider Unava ilable Encounter Details Date Type Department Care Team (Latest Contact Info) Description 01/23/2000 Outpatient Historical [facility] General and Trauma Surgery[address] [place] [address] Nonspecific abnormal findings on radiological or other examinations of the breast (Primary Dx) Social History Tobacco Use Types Packs/Day Years Used Date Smoking Tobacco: Never Assessed Comments Unknown Sex and Gender Information Value Date Recorded Sex Assigned at Not on file Legal Sex Female 4:40 AM RELOCATION COMMISSIONER Gender Identity Not on file Sexual Orientation Not on file documented as of this encounter Plan of Treatment Not on file documented as of this encounter Visit Diagnoses Diagnosis Nonspecific abnormal findings on radiological or other examinations of the breast- Primary documented in this encounter Care Teams Recreation Facility Manager Relationship Specialty Start Date End Date Non-Staff, Physician NO ADDRESS ON FILE PCP - General 07/18/13 documented as of this encounter
--- OUTSIDE RECORDS SUMMARY | 2024-11-18 14:57 | XMS_ITS | Encounter Summary ---
Author Organization [facility] Address [address] [place] [address] Care Team Providers Care Print Machine Operator Name Role Phone Non-Staff, Physician Primary Care Provider Unava ilable Encounter Details Date Type Department Care Team (Latest Contact Info) Description 02/20/2006 Outpatient Historical [facility] [address] [facility] [address] [place] [address] Negar Bourgeios MD NO ADDRESS ON FILE Other Screening Mammogram (Primary Dx) Social History Tobacco Use Types Packs/Day Years Used Date Smoking Tobacco: Never Assessed Comments Unknown Sex and Gender Information Value Date Recorded Sex Assigned at Not on file Legal Sex Female 4:40 AM 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
--- OUTSIDE RECORDS SUMMARY | 2024-11-18 14:57 | XMS_ITS | Encounter Summary ---
Author Organization [facility] Address [address] [place] [address] Care Team Providers Care Supervisor Carpenters Name Role Phone Non-Staff, Physician Primary Care Provider Unava ilable Encounter Details Date Type Department Care Team (Latest Contact Info) Description 03/24/2002 Outpatient Historical [facility] Medicine [place] [address] [facility] [address] [place] [phone] Katya Vuong MD NO ADDRESS ON FILE ELEV BL PRES W/O HYPERTN (Primary Dx) Social History Tobacco Use Types Packs/Day Years Used Date Smoking Tobacco: Never Assessed Comments Unknown Sex and Gender Information Value Date Recorded Sex Assigned at Not on file Legal Sex Female 4:40 AM PUBLIC RELATIONS ASSISTANT Gender Identity Not on file Sexual Orientation Not on file documented as of this encounter Plan of Treatment Not on file documented as of this encounter Visit Diagnoses Diagnosis Elevated blood pressure reading without diagnosis of hypertension- Primary documented in this encounter Care Teams Supervisor Carpenters Relationship Specialty Start Date End Date Non-Staff, Physician NO ADDRESS ON FILE PCP - General 07/18/13 documented as of this encounter
--- OUTSIDE RECORDS SUMMARY | 2024-11-18 14:57 | XMS_ITS | Encounter Summary ---
Author Organization [facility] Address [address] [place] [address] Care Team Providers Care Test Worker Name Role Phone Non-Staff, Physician Primary Care Provider Unava ilable Encounter Details Date Type Department Care Team (Latest Contact Info) Description 02/01/2001 Outpatient Historical [facility] Medicine [place] [address] [facility] [address] [place] [phone] Ammon Calvin DO NO ADDRESS ON FILE ALLERGIC RHINITIS NOS (Primary Dx); ACUTE PHARYNGITIS Social History Tobacco Use Types Packs/Day Years Used Date Smoking Tobacco: Never Assessed Comments Unknown Sex and Gender Information Value Date Recorded Sex Assigned at Not on file 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
--- OUTSIDE RECORDS SUMMARY | 2024-11-18 14:57 | XMS_ITS | Clinical Summary ---
Author Organization [facility] [employer] Address [address] [facility] [place] [address] Care Team Providers Care Endodontist Name Role Phone Non-Staff, Physician Primary Care Provider Unava ilable Allergies No known active allergies Medications amLODIPine (NORVASC) 10 mg tablet Take 10 mg by mouth daily. Active Nebulizer & Compressor For Neb DeviceIndicatio ns:Pneumonia, organism unspecified(486 ) As directed DX: pneumonia. 1 Device 0 5 Active albuterol (PROVENTIL,VENT EDUIN) 2.5 mg /3 mL (0.083 %) Solution for NebulizationInd ications:Pneumo dale, organism unspecified(486 ) Take 3 mL (2.5 mg) by inhalation every 6 hours as needed for Shortness of Breath. 120 mL 1 5 Active Active Problems Problem Noted Date Diagnosed [...] drink = 0.6 oz pur e alcohol) Comments No Sex and Gender Information Value Date Recorded Sex Assigned at Not on file Legal Sex Female 4:40 AM RACE RELATIONS PROFESSOR Gender Identity Not on file Sexual Orientation Not on file Last Filed Vital Signs Vital Sign Reading Time Taken Comments Blood Pressure 151/81 06/02/2014 8:37 AM CDT Pulse 74 06/02/2014 8:37 AM CDT Temperature 36.5 C (97.7 F) 06/02/2014 8:37 AM CDT Respiratory Rate 20 06/02/2014 8:37 AM CDT Oxygen Saturation 98% 06/02/2014 8:37 AM CDT Inhaled Oxygen Concentration - - Weight 65.8 kg (145 lb) 06/02/2014 8:37 AM CDT Height 154.9 cm (5' 1 ) 06/02/2014 8:37 AM CDT Body Mass Index 27.4 06/02/2014 8:37 AM CDT Plan of Treatment Health Maintenance Due Date Last Done Comments BREAST CANCER SCREENING 1990 COLORECTAL SCREENING 07/23/1995 Colorectal Cancer Screening 07/23/1995 FIT-DNA Q 3 years 07/23/1995 FIT/FOBT Q 1 year 07/23/1995 Flex Sig/CT Colonography Q 5 years 07/23/1995 PNEUMOCOCCAL VACCINE 50+ YEARS (1 of 1 - PCV) 07/23/19 01 ZOSTER VACCINE (1 of 2) 2000 DTAP/TDAP/TD VACCINES (1 - Tdap) 06/26/2004 06/26/19 05 OSTEOPOROSIS SCREENING 05/06/2021 05/06/2016 INFLUENZA VACCINE (#1) 2024 RSV VACCINE (60+ or ) (1 - 1-dose 75+ series) 2025 Procedures Procedure Name Priority Date/Time Associated Diagnosis Comments XR DEXA BONE DENSITY AXIAL 1 OR MORE SITES Routine 05/06/2016 1:33 PM RACE RELATIONS PROFESSOR Encounter for screening for osteoporosis from Last 3 Months or Most Recently Relevant to Health Maintenance Results * XR DEXA BONE DENSITY AXIAL 1 OR MORE SITES (05/06/2016 1:33 PM RACE RELATIONS PROFESSOR) Anatomical Region Laterality Modality Digital Radiogra phy 05/06/2016 1:33 PM RACE RELATIONS PROFESSOR Impressions 05/06/2016 9:55 PM RACE RELATIONS PROFESSOR IMPRESSION: At present, there is moderate osteopenia; there is currently moderate risk of fracture as predicted by bone mineral density at left femoral neck. Follow-up examination in one year is recommended. Definitions: T-score > -0.99 = Normal T-score -1.00 to -1.49 = mild osteopenia T-score -1.50 to -1.99 = moderate osteopenia T-score -2.00 to -2.49 = severe osteopenia T-score < -2.50 = osteoporosis N.B. Changes in density [...] clinical management available online at [email or web address].ac.uk/FRAX/. Enter One[employer]ath for Select DXA and the Femoral Neck BMD value. [id number] Narrative 05/06/2016 9:55 PM RACE RELATIONS PROFESSOR DEXA Evaluation of the Lumbar Spine and [...] T-score: -1.4 Adult Z-score: -0.1 Procedure Note Ivna Chavez MD - 05/06/2016 DEXA Evaluation of the Lumbar Spine and [...] Adult T-score: -1.4 Adult Z-score: -0.1 IMPRESSION IMPRESSION: At present, there is moderate osteopenia; there [...] clinical management available online at [email or web address].ac.uk/FRAX/. Enter OneBreath for Select DXA and the Femoral Neck BMD value. [id number] us Tequila Duncan MULTIMEDIA PROGRAMMER DIAGNOSTIC IMAGING ORDERABLES F inal Result from Last 3 Months or Most Recently Relevant to Health Maintenance Insurance [facility] OPEN ACCESS PLUS Care Teams Endodontist Relationship Specialty Start Date End Date Non-Staff, Physician NO ADDRESS ON FILE PCP - General 07/18/13
--- OUTSIDE RECORDS SUMMARY | 2024-11-18 14:57 | XMS_ITS | Encounter Summary ---
Author Organization [facility] Address [address] [place] [address] Care Team Providers Care Head Pastry Chef Name Role Phone Non-Staff, Physician Primary Care Provider Unava ilable Encounter Details Date Type Department Care Team (Late st Contact Info) Description 11/11/2000 Outpatient Historical [facility] General and Trauma Surgery-[address] [place] [phone] Roby Crook MD 2000 [facility] [address] [place] [address] Diffus cystic mastopathy (Primary Dx) Social History Tobacco Use Types Packs/Day Years Used Date Smoking Tobacco: Never Assessed Comments Unknown Sex and Gender Information Value Date Recorded Sex Assigned at Not on file Legal Sex Female 4:40 AM 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
--- OUTSIDE RECORDS SUMMARY | 2024-11-18 14:57 | XMS_ITS | Encounter Summary ---
Author Organization [facility] Address [address] [place] [address] Care Team Providers Care Performance Tester Name Role Phone Non-Staff, Physician Primary Care Provider Unava ilable Encounter Details Date Type Department Care Team (Late st Contact Info) Description 02/26/2006 Outpatient Historical [facility] Medicine [place] 104 [facility] [address] [place] [phone] Jacey Senior NP NO ADDRESS ON FILE Social History Tobacco Use Types Packs/Day Years Used Date Smoking Tobacco: Never Assessed Comments Unknown Sex and Gender Information Value Date Recorded Sex Assigned at Not on file Legal Sex Female 4:40 AM MINER Gender Identity Not on file Sexual Orientation Not on file documented as of this encounter Plan of Treatment Not on file documented as of this encounter Visit Diagnoses Not on filedocumented in this encounter Care Teams Performance Tester Relationship Specialty Start Date End Date Non-Staff, Physician NO ADDRESS ON FILE PCP - General 07/18/13 documented as of this encounter
--- OUTSIDE RECORDS SUMMARY | 2024-11-18 14:57 | XMS_ITS | Encounter Summary ---
Author Organization [employer] [facility] Address [address] [place] [address] Care Team Providers Care Tip Out Worker Name Role Phone Non-Staff, Physician Primary Care Provider Unava ilable Reason for Referral * Outpatient Services (Routine) - Closed Specialty Diagnoses / Procedures Referred By Contac t Referred To Contact Radiology Diagnoses Encounter for screening for osteoporosis Procedures XR DEXA BONE DENSITY AXIAL 1 OR MORE SITES Tequila Duncan FNP Phone: tel: fax: [facility] [employer] [facility] [address] [place] [address] Phone: tel: fax: Referral ID Status Reason Start Date Expiration Date V isits Requested Visits Authorized [id number] Closed INN View CTS to Schedule (SGF) 04/18/2016 05/19/2017 1 1 TERIA MANAGER Encounter Details Date Type Department Care Team (Latest Contact Info) Description 04/18/2016 Ancillary Orders [facility] Centralized Scheduling [address] [place] [address] Tequila Duncan FNP [address] [place] [address] Encounter for screening for osteoporosis Social History Tobacco Use Types Packs/Day Years Used Date Smoking Tobacco: Never Smokeless Tobacco: Never Alcohol Use Standard Drinks/Week Comments Not Asked 0 (1 standard drink = 0.6 oz pur e alcohol) Comments No Sex and Gender Information Value Date Recorded Sex Assigned at Not on file Legal Sex Female 4:40 AM CAFETERIA MANAGER Gender Identity Not on file Sexual Orientation Not on file documented as of this encounter Plan of Treatment Not on file documented as of this encounter Results * XR DEXA BONE DENSITY AXIAL 1 OR MORE SITES (05/06/2016 1:33 PM CAFETERIA MANAGER) Anatomical Region Laterality Modality Digital Radiogra phy 05/06/2016 1:33 PM CAFETERIA MANAGER Impressions 05/06/2016 9:55 PM CAFETERIA MANAGER IMPRESSION: At present, there is moderate osteopenia; [...] clinical management available online at www.shef.[email or web address]/FRAX/. Enter TNC for Select DXA and the Femoral Neck BMD value. [id number] Narrative 05/06/2016 9:55 PM [facility] DEXA Evaluation of the Lumbar Spine and [...] -0.1 Procedure Note Ivan Chavez MD - 05/06/2016 DEXA Evaluation of [...] clinical management available online at [email or web address].[email or web address]/FRAX/. Enter TNC for Select DXA and the Femoral Neck BMD value. [id number] Tequila Duncan EVP MANAGING DIRECTOR DIAGNOSTIC IMAGING ORDERABLES F inal Result documented in this encounter Visit Diagnoses Diagnosis Encounter for screening for osteoporosis Special screening for osteoporosis Encounter for screening for osteoporosis Special screening for osteoporosis documented in this encounter Care Teams Tip Out Worker Relationship Specialty Start Date End Date Non-Staff, Physician NO ADDRESS ON FILE PCP - General 07/18/13 documented as of this encounter
--- OUTSIDE RECORDS SUMMARY | 2024-11-18 14:58 | XMS_ITS | Encounter Summary ---
Author Organization [facility] Address [address] [place] [address] Care Team Providers Care Broadcaster Name Role Phone Non-Staff, Physician Primary Care Provider Unava ilable Encounter Details Date Type Department Care Team (Latest Contact Info) Description 10/24/2005 Outpatient Historical [facility] [address] [place] [phone] Jacey Senior, YESI NO ADDRESS ON FILE Spasm of Muscle (Primary Dx) Social History Tobacco Use Types Packs/Day Years Used Date Smoking Tobacco: Never Assessed Comments Unknown Sex and Gender Information Value Date Recorded Sex Assigned at Not on file Legal Sex Female 4:40 AM COMMODITIES REQUIREMENTS ANALYST Gender Identity Not on file Sexual Orientation Not on file documented as of this encounter Plan of Treatment Not on file documented as of this encounter Visit Diagnoses Diagnosis Spasm of muscle- Primary documented in this encounter Care Teams Broadcaster Relationship Specialty Start Date End Date Non-Staff, Physician NO ADDRESS ON FILE PCP - General 07/18/13 documented as of this encounter
--- OUTSIDE RECORDS SUMMARY | 2024-11-18 14:58 | XMS_ITS | Encounter Summary ---
Author Organization [facility] Address [address] [place] [address] Care Team Providers Care Lamination Technician Name Role Phone Non-Staff, Physician Primary Care Provider Unava ilable Encounter Details Date Type Department Care Team (Latest Contact Info) Description 12/29/2003 Outpatient Historical [facility] Medicine [place] [address] [facility] [address] [place] [phone] Katya Vuong MD NO ADDRESS ON FILE Atrophic vaginitis (Primary Dx); Stricture of cervix; ACUTE SINUSITIS NOS; ROUTINE HEARING CARE PRACTITIONER EXAMINATION Social History Tobacco Use Types Packs/Day Years Used Date Smoking Tobacco: Never Assessed Comments Unknown Sex and Gender Information Value Date Recorded Sex Assigned at Not on file Legal Sex Female 4:40 AM CLEANER AND POLISHER Gender Identity Not on file Sexual Orientation Not on file documented as of this encounter Plan of Treatment Not on file documented as of this encounter Visit Diagnoses Diagnosis Atrophic vaginitis- Primary Postmenopausal atrophic vaginitis Stricture of cervix Stricture and stenosis of cervix Acute sinusitis, unspecified Routine gynecological examination documented in this encounter Care Teams Lamination Technician Relationship Specialty Start Date End Date Non-Staff, Physician NO ADDRESS ON FILE PCP - General 07/18/13 documented as of this encounter
--- OUTSIDE RECORDS SUMMARY | 2024-11-18 14:58 | XMS_ITS | Encounter Summary ---
Author Organization [facility] Address [address] [place] [address] Care Team Providers Care Stock Replenisher Name Role Phone Non-Staff, Physician Primary Care Provider Unava ilable Encounter Details Date Type Department Care Team (Late st Contact Info) Description 12/29/2003 Outpatient Historical [facility] Medicine [place] [address] [facility] 60 [place] [phone] Jacey Senior NP NO ADDRESS ON FILE Social History Tobacco Use Types Packs/Day Years Used Date Smoking Tobacco: Never Assessed Comments Unknown Sex and Gender Information Value Date Recorded Sex Assigned at Not on file Legal Sex Female 4:40 AM INVENTORY MANAGER Gender Identity Not on file Sexual Orientation Not on file documented as of this encounter Plan of Treatment Not on file documented as of this encounter Visit Diagnoses Not on filedocumented in this encounter Care Teams Stock Replenisher Relationship Specialty Start Date End Date Non-Staff, Physician NO ADDRESS ON FILE PCP - General 07/18/13 documented as of this encounter
--- OUTSIDE RECORDS SUMMARY | 2024-11-18 14:58 | XMS_ITS | Encounter Summary ---
Author Organization [facility] Address [address] [place] [address] Care Team Providers Care Licensed Pesticide Applicator Name Role Phone Non-Staff, Physician Primary Care Provider Unava ilable Encounter Details Date Type Department Care Team (Latest Contact Info) Description 01/21/2005 Outpatient Historical [facility] Medicine [place] 104 [facility] 60 [place] [phone] Jacey Senior NP NO ADDRESS ON FILE ACUTE SINUSITIS NOS (Primary Dx); ACUTE PHARYNGITIS Social History Tobacco Use Types Packs/Day Years Used Date Smoking Tobacco: Never Assessed Comments Unknown Sex and Gender Information Value Date Recorded Sex Assigned at Not on file Legal Sex Female 4:40 AM OSD CLERK Gender Identity Not on file Sexual Orientation Not on file documented as of this encounter Plan of Treatment Not on file documented as of this encounter Visit Diagnoses Diagnosis Acute sinusitis, unspecified- Primary Acute pharyngitis documented in this encounter Care Teams Licensed Pesticide Applicator Relationship Specialty Start Date End Date Non-Staff, Physician NO ADDRESS ON FILE PCP - General 07/18/13 documented as of this encounter
--- OUTSIDE RECORDS SUMMARY | 2024-11-18 14:58 | XMS_ITS | Encounter Summary ---
Author Organization [facility] Address [address] [place] [address] Care Team Providers Care Behavioral Instructor Name Role Phone Non-Staff, Physician Primary Care Provider Unava ilable Encounter Details Date Type Department Care Team (Latest Contact Info) Description 06/25/2004 Outpatient Historical [facility] Medicine [place] 104 [facility] 60 [place] [phone] Shahzad Delaney MD [address] [facility] [address] [place] [phone] VACCINE FOR TETANUS/DIPHTERIA (Primary Dx) Social History Tobacco Use Types Packs/Day Years Used Date Smoking Tobacco: Never Assessed Comments Unknown Sex and Gender Information Value Date Recorded Sex Assigned at Not on file Legal Sex Female 4:40 AM STUDENT DEVELOPMENT COORDINATOR Gender Identity Not on file Sexual Orientation Not on file documented as of this encounter Plan of Treatment Not on file documented as of this encounter Visit Diagnoses Diagnosis Need for prophylactic vaccination with tetanus-diphtheria (Td)- Primary documented in this encounter Care Teams Behavioral Instructor Relationship Specialty Start Date End Date Non-Staff, Physician NO ADDRESS ON FILE PCP - General 07/18/13 documented as of this encounter
--- OUTSIDE RECORDS SUMMARY | 2024-11-18 14:58 | XMS_ITS | Encounter Summary ---
Author Organization [facility] Address [address] [place] [address] Care Team Providers Care Molecular Biology Director Name Role Phone Non-Staff, Physician Primary Care Provider Unava ilable Encounter Details Date Type Department Care Team (Latest Contact Info) Description 02/28/[address] [facility] Family Medicine [place] 104 [facility] 60 [place] [phone] Ammon Calvin DO NO ADDRESS ON FILE Routine medical exam (Primary Dx) Social History Tobacco Use Types Packs/Day Years Used Date Smoking Tobacco: Never Assessed Comments Unknown Sex and Gender Information Value Date Recorded Sex Assigned at Not on file Legal Sex Female 4:40 AM MOTTLER MACHINE FEEDER Gender Identity Not on file Sexual Orientation Not on file documented as of this encounter Plan of Treatment Not on file documented as of this encounter Visit Diagnoses Diagnosis Routine medical exam- Primary Routine general medical examination at a health care facility documented in this encounter Care Teams Molecular Biology Director Relationship Specialty Start Date End Date Non-Staff, Physician NO ADDRESS ON FILE PCP - General 07/18/13 documented as of this encounter
--- OUTSIDE RECORDS SUMMARY | 2024-11-18 14:58 | XMS_ITS | Encounter Summary ---
Author Organization [facility] Address [address] [place] [address] Care Team Providers Care Lining Feller Name Role Phone Non-Staff, Physician Primary Care Provider Unava ilable Encounter Details Date Type Department Care Team (Latest Contact Info) Description 01/09/2004 Outpatient Historical [facility] Medicine [place] [address] [facility] [address] [place] [phone] Ammon Calvin DO NO ADDRESS ON FILE SCREENING MAL NEOP-RECTUM (Primary Dx) Social History Tobacco Use Types Packs/Day Years Used Date Smoking Tobacco: Never Assessed Comments Unknown Sex and Gender Information Value Date Recorded Sex Assigned at Not on file Legal Sex Female 4:40 AM FLAT LOCK OPERATOR Gender Identity Not on file Sexual Orientation Not on file documented as of this encounter Plan of Treatment Not on file documented as of this encounter Visit Diagnoses Diagnosis Screening for malignant neoplasm of the rectum- Primary documented in this encounter Care Teams Lining Feller Relationship Specialty Start Date End Date Non-Staff, Physician NO ADDRESS ON FILE PCP - General 07/18/13 documented as of this encounter
--- OUTSIDE RECORDS SUMMARY | 2024-11-18 14:58 | XMS_ITS | Encounter Summary ---
Author Organization [facility] Address [address] [place] [address] Care Team Providers Care Geological Science Teacher Name Role Phone Non-Staff, Physician Primary Care Provider Unava ilable Encounter Details Date Type Department Care Team (Latest Contact Info) Description 12/23/2002 Outpatient Historical [facility] Breast [place] Arya Arana Tami [address] [place] [phone] Randi Chen DO [address] [place], [place] [phone] SCREENING MAMM-MAILG NEOPL-OTHER (Primary Dx) Social History Tobacco Use Types Packs/Day Years Used Date Smoking Tobacco: Never Assessed Comments Unknown Sex and Gender Information Value Date Recorded Sex Assigned at Not on file Legal Sex Female 4:40 AM PSYCHOLOGY TECHNICIAN Gender Identity Not on file Sexual Orientation Not on file documented as of this encounter Plan of Treatment Not on file documented as of this encounter Visit Diagnoses Diagnosis Other screening mammogram- Primary documented in this encounter Care Teams Geological Science Teacher Relationship Specialty Start Date End Date Non-Staff, Physician NO ADDRESS ON FILE PCP - General 07/18/13 documented as of this encounter
--- OUTSIDE RECORDS SUMMARY | 2024-11-18 14:58 | XMS_ITS | Encounter Summary ---
Author Organization [facility] Address [address] [place] [address] Care Team Providers Care Fish Salter Name Role Phone Non-Staff, Physician Primary Care Provider Unava ilable Encounter Details Date Type Department Care Team (Latest Contact Info) Description 05/23/2005 Outpatient Historical [facility] Medicine [place] [address] [facility] 60 [place] [phone] Ammon Calvin DO NO ADDRESS ON FILE PNEUMONIA, ORGANISM NOS (Primary Dx) Social History Tobacco Use Types Packs/Day Years Used Date Smoking Tobacco: Never Assessed Comments Unknown Sex and Gender Information Value Date Recorded Sex Assigned at Not on file Legal Sex Female 4:40 AM CARGOMAN Gender Identity Not on file Sexual Orientation Not on file documented as of this encounter Plan of Treatment Not on file documented as of this encounter Visit Diagnoses Diagnosis Pneumonia, organism unspecified(486)- Primary Pneumonia, organism unspecified documented in this encounter Care Teams Fish Salter Relationship Specialty Start Date End Date Non-Staff, Physician NO ADDRESS ON FILE PCP - General 07/18/13 documented as of this encounter
--- OUTSIDE RECORDS SUMMARY | 2024-11-18 14:58 | XMS_ITS | Encounter Summary ---
Author Organization [facility] Address [address] [place] [address] Care Team Providers Care Punch Press Operator Helper Name Role Phone Non-Staff, Physician Primary Care Provider Unava ilable Encounter Details Date Type Department Care Team (Late st Contact Info) Description 10/15/2001 Outpatient Historical [facility] [address] [facility] [address] [place] [address] Yajaira Reno MD NO ADDRESS ON FILE LUMP OR MASS IN BREAST (Primary Dx) Social History Tobacco Use Types Packs/Day Years Used Date Smoking Tobacco: Never Assessed Comments Unknown Sex and Gender Information Value Date Recorded Sex Assigned at Not on file Legal Sex Female 4:40 AM SCHOOL PHYSICAL THERAPIST Gender Identity Not on file Sexual Orientation Not on file documented as of this encounter Plan of Treatment Not on file documented as of this encounter Visit Diagnoses Diagnosis Lump or mass in breast- Primary documented in this encounter Care Teams Punch Press Operator Helper Relationship Specialty Start Date End Date Non-Staff, Physician NO ADDRESS ON FILE PCP - General 07/18/13 documented as of this encounter
--- OUTSIDE RECORDS SUMMARY | 2024-11-18 14:58 | XMS_ITS | Encounter Summary ---
Author Organization [facility] Address [address] [place] [address] Care Team Providers Care Coffee Roaster Helper Name Role Phone Non-Staff, Physician Primary Care Provider Unava ilable Encounter Details Date Type Department Care Team (Late st Contact Info) Description 09/01/2001 Outpatient Historical [facility] General and Trauma Surgery-[address] [place] [phone] Roby Crook MD 2000 [facility] [address] [place] [address] Diffus cystic mastopathy (Primary Dx) Social History Tobacco Use Types Packs/Day Years Used Date Smoking Tobacco: Never Assessed Comments Unknown Sex and Gender Information Value Date Recorded Sex Assigned at Not on file Legal Sex Female 4:40 AM NURSING ASSISTANT Gender Identity Not on file Sexual Orientation Not on file documented as of this encounter Plan of Treatment Not on file documented as of this encounter Visit Diagnoses Diagnosis Diffus cystic mastopathy- Primary Diffuse cystic mastopathy documented in this encounter Care Teams Coffee Roaster Helper Relationship Specialty Start Date End Date Non-Staff, Physician NO ADDRESS ON FILE PCP - General 07/18/13 documented as of this encounter
--- OUTSIDE RECORDS SUMMARY | 2024-11-18 14:58 | XMS_ITS | Encounter Summary ---
Author Organization [facility] Address [address] [place] [address] Care Team Providers Care De Icer Finisher Name Role Phone Non-Staff, Physician Primary Care Provider Unava ilable Encounter Details Date Type Department Care Team (Latest Contact Info) Description 01/12/2004 Outpatient Historical [facility] Breast [place] Arya Arana [place] [address] [place] [phone] Jamey Daniel MD NO ADDRESS ON FILE SCREENING MAMM-MAILG NEOPL-OTHER (Primary Dx) Social History Tobacco Use Types Packs/Day Years Used Date Smoking Tobacco: Never Assessed Comments Unknown Sex and Gender Information Value Date Recorded Sex Assigned at Not on file Legal Sex Female 4:40 AM LOT BOSS Gender Identity Not on file Sexual Orientation Not on file documented as of this encounter Plan of Treatment Not on file documented as of this encounter Visit Diagnoses Diagnosis Other screening mammogram- Primary documented in this encounter Care Teams De Icer Finisher Relationship Specialty Start Date End Date Non-Staff, Physician NO ADDRESS ON FILE PCP - General 07/18/13 documented as of this encounter
--- OUTSIDE RECORDS SUMMARY | 2024-11-18 14:58 | XMS_ITS | Encounter Summary ---
Author Organization [facility] Address [address] [place] [address] Care Team Providers Care Medical Delivery Driver Name Role Phone Non-Staff, Physician Primary Care Provider Unava ilable Encounter Details Date Type Department Care Team (Latest Contact Info) Description 02/07/2005 Outpatient Historical [facility] [address] [facility] [address] [place] [address] Negar Bourgeois MD NO ADDRESS ON FILE SCREENING MAMM-MAILG NEOPL NEC (Primary Dx) Social History Tobacco Use Types Packs/Day Years Used Date Smoking Tobacco: Never Assessed Comments Unknown Sex and Gender Information Value Date Recorded Sex Assigned at Not on file 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
--- OUTSIDE RECORDS SUMMARY | 2024-11-18 14:58 | XMS_ITS | Encounter Summary ---
Author Organization [facility] Address [address] [place] [address] Care Team Providers Care Blow Off Worker Name Role Phone Non-Staff, Physician Primary Care Provider Unava ilable Encounter Details Date Type Department Care Team (Latest Contact Info) Description 05/13/2005 Outpatient Historical [facility] Medicine [place] [address] [facility] [address] [place] [phone] Ammon Calvin DO NO ADDRESS ON FILE ACUTE BRONCHITIS (Primary Dx); PULMONARY COLLAPSE Social History Tobacco Use Types Packs/Day Years Used Date Smoking Tobacco: Never Assessed Comments Unknown Sex and Gender Information Value Date Recorded Sex Assigned at Not on file 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
--- OUTSIDE RECORDS SUMMARY | 2024-11-18 14:58 | XMS_ITS | Encounter Summary ---
Author Organization [facility] Address [address] [place] [address] Care Team Providers Care Rapid Extractor Operator Name Role Phone Non-Staff, Physician Primary Care Provider Unava ilable Encounter Details Date Type Department Care Team (Latest Contact Info) Description 03/07/2002 Outpatient Historical [facility] Medicine [place] [address] [facility] [address] [place] [phone] Shahzad Delaney MD [address] [facility] [address] [place] [phone] ALLERGIC RHINITIS NOS (Primary Dx); ELEV BL PRES W/O HYPERTN Social History Tobacco Use Types Packs/Day Years Used Date Smoking Tobacco: Never Assessed Comments Unknown Sex and Gender Information Value Date Recorded Sex Assigned at Not on file 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
--- OUTSIDE RECORDS SUMMARY | 2024-11-18 14:58 | XMS_ITS | Encounter Summary ---
Author Organization [facility] Address [address] [place] [address] Care Team Providers Care Shot Coat Tender Name Role Phone Non-Staff, Physician Primary Care Provider Unava ilable Encounter Details Date Type Department Care Team (Latest Contact Info) Description 08/27/2005 Outpatient Historical [facility] Medicine [place] [address] [facility] [address] [place] [phone] Jacey Senior NP NO ADDRESS ON FILE Acute Pharyngitis (Primary Dx); Acute Bronchitis; Unspecified Essential Hypertension; Fever Social History Tobacco Use Types Packs/Day Years Used Date Smoking Tobacco: Never Assessed Comments Unknown Sex and Gender Information Value Date Recorded Sex Assigned at Not on file 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
--- OUTSIDE RECORDS SUMMARY | 2024-11-18 14:58 | XMS_ITS | Encounter Summary ---
Author Organization [facility] Address [address] [place] [address] Care Team Providers Care Incident Handler Name Role Phone Non-Staff, Physician Primary Care Provider Unava ilable Encounter Details Date Type Department Care Team (Latest Contact Info) Description 12/23/2002 Outpatient Historical [facility] Breast [place] Arya Arana [place] [address] [place] [phone] Jamey Daniel MD NO ADDRESS ON FILE SCREENING MAMM-MAILG NEOPL-OTHER (Primary Dx) Social History Tobacco Use Types Packs/Day Years Used Date Smoking Tobacco: Never Assessed Comments Unknown Sex and Gender Information Value Date Recorded Sex Assigned at Not on file Legal Sex Female 4:40 AM ETL LEAD Gender Identity Not on file Sexual Orientation Not on file documented as of this encounter Plan of Treatment Not on file documented as of this encounter Visit Diagnoses Diagnosis Other screening mammogram- Primary documented in this encounter Care Teams Incident Handler Relationship Specialty Start Date End Date Non-Staff, Physician NO ADDRESS ON FILE PCP - General 07/18/13 documented as of this encounter
--- OUTSIDE RECORDS SUMMARY | 2024-11-18 14:58 | XMS_ITS | Encounter Summary ---
Author Organization [facility] Address [address] [place] [address] Care Team Providers Care Billing Rep Name Role Phone Non-Staff, Physician Primary Care Provider Unava ilable Encounter Details Date Type Department Care Team (Latest Contact Info) Description 12/23/2002 Outpatient Historical [facility] Sumit Souris [address] [place] [phone] Randi Chen DO [address] [place] [address] COUGH (Primary Dx) Social History Tobacco Use Types Packs/Day Years Used Date Smoking Tobacco: Never Assessed Comments Unknown Sex and Gender Information Value Date Recorded Sex Assigned at Not on file 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
--- OUTSIDE RECORDS SUMMARY | 2024-11-18 14:58 | XMS_ITS | Encounter Summary ---
Author Organization [facility] Address [address] [place] [address] Care Team Providers Care Threader Name Role Phone Non-Staff, Physician Primary Care Provider Unava ilable Encounter Details Date Type Department Care Team (Latest Contact Info) Description 01/31/[address] 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
--- OUTSIDE RECORDS SUMMARY | 2024-11-18 14:58 | XMS_ITS | Encounter Summary ---
Author Organization [facility] Address [address] [place] [address] Care Team Providers Care Scale Agent Name Role Phone Non-Staff, Physician Primary Care Provider Unava ilable Encounter Details Date Type Department Care Team (Latest Contact Info) Description 05/31/2004 Outpatient Historical [facility] [address] [place] [phone] Ammon Calvin DO NO ADDRESS ON FILE MUSCSK SYMPT LIMB NEC (Primary Dx) Social History Tobacco Use Types Packs/Day Years Used Date Smoking Tobacco: Never Assessed Comments Unknown Sex and Gender Information Value Date Recorded Sex Assigned at Not on file 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
--- OUTSIDE RECORDS SUMMARY | 2024-11-18 14:58 | XMS_ITS | Encounter Summary ---
Author Organization [facility] Address [address] [place] [address] Care Team Providers Care Hoisting Laborer Name Role Phone Non-Staff, Physician Primary Care Provider Unava ilable Encounter Details Date Type Department Care Team (Latest Contact Info) Description 12/04/2003 Outpatient Historical [facility] Family Medicine- [place] [address] [place] [address] Katya Vuong MD NO ADDRESS ON FILE ALLERGIC RHINITIS NOS (Primary Dx) Social History Tobacco Use Types Packs/Day Years Used Date Smoking Tobacco: Never Assessed Comments Unknown Sex and Gender Information Value Date Recorded Sex Assigned at Not on file 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
--- OUTSIDE RECORDS SUMMARY | 2024-11-18 14:58 | XMS_ITS | Encounter Summary ---
Author Organization [facility] Address [address] [place] [address] Care Team Providers Care Pathology Transcriptionist Name Role Phone Non-Staff, Physician Primary Care Provider Unava ilable Encounter Details Date Type Department Care Team (Latest Contact Info) Description 07/18/2003 Outpatient Historical [facility] Family Medicine- [place] [address] [place] [phone] Jacey Senior NP NO ADDRESS ON FILE HYPERTENSION NOS (Primary Dx) Social History Tobacco Use Types Packs/Day Years Used Date Smoking Tobacco: Never Assessed Comments Unknown Sex and Gender Information Value Date Recorded Sex Assigned at Not on file 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
--- OUTSIDE RECORDS SUMMARY | 2024-11-18 14:58 | XMS_ITS | Encounter Summary ---
Author Organization [facility] Address [address] [place] [address] Care Team Providers Care Radiotelephone Technical Operator Name Role Phone Non-Staff, Physician Primary Care Provider Unava ilable Encounter Details Date Type Department Care Team (Latest Contact Info) Description 09/04/2005 Outpatient Historical [facility] Medicine [place] [address] [facility] [address] [place] [phone] Katya Vuong MD NO ADDRESS ON FILE Pneumonia, Organism Unspecified (Primary Dx); Fever; Unspecified Essential Hypertension Social History Tobacco Use Types Packs/Day Years Used Date Smoking Tobacco: Never Assessed Comments Unknown Sex and Gender Information Value Date Recorded Sex Assigned at Not on file 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
--- OUTSIDE RECORDS SUMMARY | 2024-11-18 14:58 | XMS_ITS | Encounter Summary ---
Author Organization [facility] Address [address] [facility] [address] 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
--- OUTSIDE RECORDS SUMMARY | 2024-11-18 14:58 | XMS_ITS | Encounter Summary ---
Author Organization [facility] Address [address] [place] [address] Care Team Providers Care Field Handyman Name Role Phone Non-Staff, Physician Primary Care Provider Unava ilable Encounter Details Date Type Department Care Team (Late st Contact Info) Description 12/23/2002 Outpatient Historical [facility] [address] [place] [address] Randi Chen, [address] [place], [place] [id number] Social History Tobacco Use Types Packs/Day Years Used Date Smoking Tobacco: Never Assessed Comments Unknown Sex and Gender Information Value Date Recorded Sex Assigned at Not on file 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
--- OUTSIDE RECORDS SUMMARY | 2024-11-18 14:58 | XMS_ITS | Encounter Summary ---
Author Organization [facility] Address [address] [place] [address] Care Team Providers Care Landscaping Manager Name Role Phone Non-Staff, Physician Primary Care Provider Unava ilable Encounter Details Date Type Department Care Team (Latest Contact Info) Description 02/07/2005 Outpatient [facility] [place] [address] [place], [place] [phone] Ammon Calvin DO NO ADDRESS ON FILE SCREENING MAMM-MAILG NEOPL NEC (Primary Dx) Social History Tobacco Use Types Packs/Day Years Used Date Smoking Tobacco: Never Assessed Comments Unknown Sex and Gender Information Value Date Recorded Sex Assigned at Not on file 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
--- OUTSIDE RECORDS SUMMARY | 2024-11-18 14:58 | XMS_ITS | Encounter Summary ---
Author Organization [facility] Address [address] [place] [address] Care Team Providers Care Remote Control Assembler Name Role Phone Non-Staff, Physician Primary Care Provider Unava ilable Encounter Details Date Type Department Care Team (Latest Contact Info) Description 01/12/2004 Outpatient Historical [facility] Arya Arana [place] [address] [place] [phone] Randi Chen DO [address] [place], [place] [address] SCREENING MAMM-MAILG NEOPL-OTHER (Primary Dx) Social History Tobacco Use Types Packs/Day Years Used Date Smoking Tobacco: Never Assessed Comments Unknown Sex and Gender Information Value Date Recorded Sex Assigned at Not on file 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
--- OUTSIDE RECORDS SUMMARY | 2024-11-18 14:58 | XMS_ITS | Encounter Summary ---
Author Organization [facility] Address [address] [place] [address] Care Team Providers Care Human Services Manager Name Role Phone Non-Staff, Physician Primary Care Provider Unava ilable Encounter Details Date Type Department Care Team (Latest Contact Info) Description 05/09/2005 Outpatient Historical [address] [phone] Ammon Calvin DO NO ADDRESS ON FILE ACUTE BRONCHITIS (Primary Dx); ACUTE PHARYNGITIS Social History Tobacco Use Types Packs/Day Years Used Date Smoking Tobacco: Never Assessed Comments Unknown Sex and Gender Information Value Date Recorded Sex Assigned at Not on file 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
--- OUTSIDE RECORDS SUMMARY | 2024-11-18 14:58 | XMS_ITS | Encounter Summary ---
Author Organization [facility] Address [address] [place] [address] Care Team Providers Care Environmental Health Inspector Name Role Phone Non-Staff, Physician Primary Care Provider Unava ilable Encounter Details Date Type Department Care Team (Late st Contact Info) Description 09/03/2001 Outpatient Historical [facility] [address] 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
--- OUTSIDE RECORDS SUMMARY | 2024-11-18 14:58 | XMS_ITS | Encounter Summary ---
Author Organization [facility] Address [address] [place] [address] Care Team Providers Care Director Digital Advertising Name Role Phone Non-Staff, Physician Primary Care Provider Unava ilable Encounter Details Date Type Department Care Team (Latest Contact Info) Description 09/28/2001 Outpatient Historical [facility] Family Medicine- [place] [address] [place] [phone] Ammon Calvin DO NO ADDRESS ON FILE ALLERGIC RHINITIS NOS (Primary Dx); CONJUNCTIVITIS NOS; FLUID OVERLOAD Social History Tobacco Use Types Packs/Day Years Used Date Smoking Tobacco: Never Assessed Comments Unknown Sex and Gender Information Value Date Recorded Sex Assigned at Not on file 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
--- OUTSIDE RECORDS SUMMARY | 2024-11-18 14:58 | XMS_ITS | Encounter Summary ---
Author Organization [facility] Address [address] [place] [address] Care Team Providers Care Air Twister Winder Name Role Phone Non-Staff, Physician Primary Care Provider Unava ilable Encounter Details Date Type Department Care Team (Late st Contact Info) Description 09/05/2005 Outpatient Historical [facility] Sumit Tami [address] [place] [phone] Social History Tobacco Use Types Packs/Day Years Used Date Smoking Tobacco: Never Assessed Comments Unknown Sex and Gender Information Value Date Recorded Sex Assigned at Not on file Legal Sex Female 4:40 AM CARDIAC CARE UNIT NURSE Gender Identity Not on file Sexual Orientation Not on file documented as of this encounter Plan of Treatment Not on file documented as of this encounter Visit Diagnoses Not on filedocumented in this encounter Care Teams Air Twister Winder Relationship Specialty Start Date End Date Non-Staff, Physician NO ADDRESS ON FILE PCP - General 07/18/13 documented as of this encounter
--- OUTSIDE RECORDS SUMMARY | 2024-11-18 14:58 | XMS_ITS | Encounter Summary ---
Author Organization [facility] Address [address] [place] [address] Care Team Providers Care Director Of Student Aid Name Role Phone Non-Staff, Physician Primary Care Provider Unava ilable Encounter Details Date Type Department Care Team (Latest Contact Info) Description 10/01/2001 Outpatient Historical [facility] [address] [facility] [address] [place] [address] Negar Bourgeois MD NO ADDRESS ON FILE OT ABNORMAL RADIOLOG EXAM BREAST (Primary Dx) Social History Tobacco Use Types Packs/Day Years Used Date Smoking Tobacco: Never Assessed Comments Unknown Sex and Gender Information Value Date Recorded Sex Assigned at Not on file Legal Sex Female 4:40 AM PEDIATRIC PHYSICAL THERAPY ASSISTANT Gender Identity Not on file Sexual Orientation Not on file documented as of this encounter Plan of Treatment Not on file documented as of this encounter Visit Diagnoses Diagnosis Other (abnormal) findings on radiological examination of breast- Primary documented in this encounter Care Teams Director Of Student Aid Relationship Specialty Start Date End Date Non-Staff, Physician NO ADDRESS ON FILE PCP - General 07/18/13 documented as of this encounter
--- OUTSIDE RECORDS SUMMARY | 2024-11-18 14:58 | XMS_ITS | Encounter Summary ---
Author Organization [facility] Address [address] [place] [address] Care Team Providers Care Loan Coordinator Name Role Phone Non-Staff, Physician Primary Care Provider Unava ilable Encounter Details Date Type Department Care Team (Latest Contact Info) Description 03/02/2001 Outpatient Historical [facility] Family Medicine [place] [address] [facility] [address] [place] [phone] Ammon Calvin DO NO ADDRESS ON FILE ACUTE BRONCHITIS (Primary Dx) Social History Tobacco Use Types Packs/Day Years Used Date Smoking Tobacco: Never Assessed Comments Unknown Sex and Gender Information Value Date Recorded Sex Assigned at Not on file 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
--- OUTSIDE RECORDS SUMMARY | 2024-11-18 14:58 | XMS_ITS | Encounter Summary ---
Author Organization [facility] Address [address] [place] [address] Care Team Providers Care Reel Stripper Name Role Phone Non-Staff, Physician Primary Care Provider Unava ilable Encounter Details Date Type Department Care Team (Latest Contact Info) Description 05/17/2004 Outpatient Historical [address] [phone] Ammon Calvin DO NO ADDRESS ON FILE OTHER MALAISE AND FATIGUE (Primary Dx); ACUTE URI NOS Social History Tobacco Use Types Packs/Day Years Used Date Smoking Tobacco: Never Assessed Comments Unknown Sex and Gender Information Value Date Recorded Sex Assigned at Not on file 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
--- OUTSIDE RECORDS SUMMARY | 2024-11-18 14:58 | XMS_ITS | Encounter Summary ---
Author Organization [facility] Address [address] [place] [address] Care Team Providers Care Fabric Sourcer Name Role Phone Non-Staff, Physician Primary Care Provider Unava ilable Encounter Details Date Type Department Care Team (Latest Contact Info) Description 08/12/2002 Outpatient Historical [facility] [address] [place] [phone] Randi Chen, [address] [place], [place] [id number] HYPERTENSION NOS (Primary Dx); IRRITABLE COLON Social History Tobacco Use Types Packs/Day Years Used Date Smoking Tobacco: Never Assessed Comments Unknown Sex and Gender Information Value Date Recorded Sex Assigned at Not on file Legal Sex Female 4:40 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
--- OUTSIDE RECORDS SUMMARY | 2024-11-18 14:58 | XMS_ITS | Encounter Summary ---
Author Organization [facility] Address [address] [place] [address] Care Team Providers Care Lead Front End Developer Name Role Phone Non-Staff, Physician Primary Care Provider Unava ilable Encounter Details Date Type Department Care Team (Late st Contact Info) Description 05/14/2005 Outpatient Historical [facility] Imaging Services-[place] Sumit Tami [address] [place] [phone] Social History Tobacco Use Types Packs/Day Years Used Date Smoking Tobacco: Never Assessed Comments Unknown Sex and Gender Information Value Date Recorded Sex Assigned at Not on file 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
--- OUTSIDE RECORDS SUMMARY | 2024-11-18 14:58 | XMS_ITS | Encounter Summary ---
Author Organization [facility] Address [address] [place] [address] Care Team Providers Care Leather Goods Assembler Name Role Phone Non-Staff, Physician Primary Care Provider Unava ilable Encounter Details Date Type Department Care Team (Latest Contact Info) Description 01/01/2006 Outpatient Historical [facility] Medicine [place] [address] [facility] [address] [place] [phone] Love Stewart, LOGISTICS ENGINEERING MANAGER [address] [place] [phone] Other Conjunctivitis (Primary Dx); Acute Upper Respiratory Infections of Unspecified Site Social History Tobacco Use Types Packs/Day Years Used Date Smoking Tobacco: Never Assessed Comments Unknown Sex and Gender Information Value Date Recorded Sex Assigned at Not on file 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
--- OUTSIDE RECORDS SUMMARY | 2024-11-18 14:58 | XMS_ITS | Encounter Summary ---
Author Organization [facility] Address [address] [place] [address] Care Team Providers Care Medical [facility] Sales Name Role Phone Non-Staff, Physician Primary Care Provider Unava ilable Encounter Details Date Type Department Care Team (Latest Contact Info) Description 12/23/2002 Outpatient Historical [facility] [address] [place] [phone] Randi Chen, [address] [place] [address] Routine medical exam (Primary Dx); Gynecologic examination Social History Tobacco Use Types Packs/Day Years Used Date Smoking Tobacco: Never Assessed Comments Unknown Sex and Gender Information Value Date Recorded Sex Assigned at Not on file Legal Sex Female 4:40 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
--- OUTSIDE RECORDS SUMMARY | 2024-11-18 14:58 | XMS_ITS | Encounter Summary ---
Author Organization [facility] Address [address] [place] [address] Care Team Providers Care Manager Exchange Name Role Phone Non-Staff, Physician Primary Care Provider Unava ilable Encounter Details Date Type Department Care Team (Latest Contact Info) Description 05/10/2001 Outpatient Historical [facility] Family Medicine- [place] [address] [place] [address] Shahzad Delaney MD [address] [facility] [address] [place] [phone] ACUTE BRONCHITIS (Primary Dx) Social History Tobacco Use Types Packs/Day Years Used Date Smoking Tobacco: Never Assessed Comments Unknown Sex and Gender Information Value Date Recorded Sex Assigned at Not on file 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
[2024-11-18 15:23] VITALS: BP 161/76; PULSE 69; RESP 17; TEMP 36.7; O2SAT 97; BMI 26.5
[2024-11-18 17:30] LABS: Hematocrit 41.6 % (36-47); Hemoglobin 13.70 g/dL (11.27-16.99); Mean Corpuscular HGB Conc 32.9 g/dL (30-55); Mean Corpuscular Hemoglobin 30.2 pg (27-33); Mean Corpuscular Volume 91.6 fl (85-98); Nucleated Red Blood Cells % 0 %; Platelet Count 292 10^3/cmm (157-399); Red Blood Count 4.54 10^6/uL (3.85-5.65); White Blood Count 10.45 10^3/uL (3.29-11.43)
[2024-11-18 17:47] LABS: Alanine Aminotransferase 35 U/L (0-33); Albumin Level 4.6 g/dL (3.5-5.2); Alkaline Phosphatase 128 U/L (35-105); Chloride 102 mmol/L (98-107); Potassium 3.2 mmol/L (3.5-5.1); Sodium 141 mmol/L (136-145)
[2024-11-18 17:50] LABS: Anion Gap 14.2 (5-19); Aspartate Amino Transferase 28 U/L (0-32); Blood Urea Nitrogen 15 mg/dL (8-23); Calcium 9.9 mg/dL (8.5-10.5); Carbon Dioxide 27 mmol/L (22-29); Creatinine Clr Calc Pharmacy 54.9005; Globulin 4.0 g/dL (1.3-4.6); Glucose 92 mg/dL (65-115); Osmolality Calculated 284 mOsm/kg (285-295); Total Protein 8.5 g/dL (6.6-8.7)
--- NOTE | 2024-11-18 19:21 | USR_ITS ---
PROCEDURE INFORMATION: Exam: US Duplex Left Lower Extremity Veins, Limited Exam date and time: 11/18/2024 8:13 PM Age: 74 years old Clinical indication: Pain; Leg, lower; Left; Additional info: Atraumatic left leg pain, swelling TECHNIQUE: Imaging protocol: Real-time duplex ultrasound of the left extremity with 2-D pruitt scale, color Doppler flow and spectral waveform analysis including responses to compression and other maneuvers (when performed) with image documentation. Limited exam focused on the left lower extremity veins. COMPARISON: CR (LOW EXM, ) 11/18/2024 7:35 PM FINDINGS: Left deep veins: Unremarkable. The common femoral, femoral, proximal profunda femoral and popliteal veins are patent without thrombus. Normal Doppler waveforms. Normal compressibility and/or augmentation response. Superficial veins: Greater saphenous vein at the saphenofemoral junction is patent without thrombus. Soft tissues: Unremarkable. US/CV venous duplex [facility] [id number] IMPRESSION: No evidence of deep vein thrombosis.
--- NOTE | 2024-11-18 19:22 | XRR_ITS ---
PROCEDURE INFORMATION: Exam: XR Left Knee Exam date and time: 11/18/2024 7:35 PM Age: 74 years old Clinical indication: Pain; Knee; Left; Additional info: Lt knee pain/swelling; No known injury, onset today TECHNIQUE: Imaging protocol: Radiologic exam of the left knee. Views: 3 views. COMPARISON: No relevant prior studies available. FINDINGS: Bones/joints: Normal. Soft tissues: Normal. XR/XR knee LT 3V* [id number] IMPRESSION: No acute findings.
--- NOTE | 2024-11-18 19:27 | W.ED.EXTPRO ---
HPI - Extremity Problem General: Chief complaint: Extremity Problem,Nontraumatic Stated complaint: pain lt leg Time Seen by Provider: 11/18/24 16:59 Source: patient Mode of arrival: ambulatory Limitations: no limitations History of Present Illness: Patient is a 74-year-old female who presents the emergency department planing of left knee pain radiating down to the left ankle beginning today. States that she is unsure of how the pain started, that she may have stepped off a porch step wrong but ultimately is unsure. Denies a history of blood clots. States that her left foot has also started to swell. Notes that the pain at rest is very minor but when she goes to put any weight on her left leg it spikes to a 10/10. There is no bruising, pallor, cyanosis, or coolness to the left lower extremity. No shortness of breath, previous surgical history anywhere in the left lower leg, or direct trauma reported. Took ibuprofen this morning that helped some, denying needing pain meds at this time. MD Complaint: extremity pain Location: left and lower extremity Severity scale (1-10): 10 Radiation: distal Associated symptoms: Deny chest pain, fever(s) or rash Related Data Home Medications ?Medication ?Instructions ?Recorded ?Confirmed aspirin 81 mg tablet,delayed 81 mg PO DAILY 08/08/22 10/18/24 release (Adult Aspirin Regimen) atorvastatin 10 mg tablet (Lipitor) 10 mg PO QPM 08/08/22 10/18/24 potassium chloride 10 mEq 10 meq PO DAILY 08/08/22 10/18/24 tablet,extended release tramadol 50 mg tablet 50 mg PO PRN PRN Pain 08/08/22 10/18/24 famotidine 20 mg tablet (Acid 20 mg PO DAILY PRN heart burn 06/21/24 10/18/24 Piece Dyeing Machine Tender (famotidine)) hydrochlorothiazide 25 mg tablet 25 mg PO DAILY 06/21/24 10/18/24 losartan 25 mg tablet 25 mg PO DAILY 06/21/24 10/18/24 amlodipine 5 mg tablet mg PO 10/18/24 10/18/24 ibuprofen 800 mg tablet 800 mg PO TID PRN 10/18/24 10/18/24 Previous Rx's ?Medication ?Instructions ?Recorded amoxicillin 875 mg-potassium 1 tab PO BID 10 days #20 tabs 10/18/24 clavulanate 125 mg tablet prednisone 20 mg tablet 20 mg PO DAILY #7 tabs 10/18/24 alprazolam 0.25 mg tablet 0.25 mg PO DAILY PRN Anxiety 30 11/11/24 days #30 tabs Allergies Allergy/AdvReac Type Severity Reaction Status Date / Time No Known Allergies Allergy Verified 10/18/24 15:44 Review of Systems General: Reports: 10 or more systems reviewed and unremarkable except in HPI and below Const: Denies: fever(s) or chills Card: Denies: chest pain Resp: Denies: dyspnea or productive cough GI: Denies: abdominal pain, nausea, vomiting or diarrhea : Denies: flank pain Musc: Reports: extremity pain (LLE) and extremity swelling (LLE); Denies: neck pain, back pain, joint pain, joint swelling, joint redness, joint warmth, limited range of motion or muscle weakness Skin/Breast: Denies: rash Neuro: Denies: headache(s), numbness in extremities or weakness in extremities PFSH ED PFSH: Medical History Anxiety Lower respiratory infection Acute bacterial sinusitis Hypertension Hyperlipemia Surgical History Hx of carpal tunnel repair Social History Smoking and tobacco/nicotine status: never used tobacco/nicotine Physical Exam Const: COMMON NORMALS: no acute distress, patient oriented x3, no limitations, healthy appearing, alert and well nourished HENMT: COMMON NORMALS: normocephalic and atraumatic HEAD & SCALP: normocephalic and atraumatic Neck/C-Spine: COMMON NORMALS: full ROM, supple and no meningeal signs Resp: COMMON NORMALS: normal respiratory effort, No use of accessory muscles and clear to auscultation bilaterally AUSCULTATION: clear to auscultation bilaterally Cardio: COMMON NORMALS: regular rate and regular rhythm RATE: regular rate RHYTHM: regular rhythm Extremity: COMMON NORMALS: normal to inspection, full ROM, capillary refill normal, no joint enlargement and no clubbing, cyanosis or edema NARRATIVE EXTREMITY EXAM: The left lower extremity is negative tender to palpation. There is no swelling. Dorsalis pedis and posterior tibial pulses are both palpable. No significant edema noted. Negative Homans' sign. No tenderness to palpation in the popliteal space, or palpable cord. Neuro: COMMON NORMALS: patient oriented x3, moves all extremities, no focal motor deficits and no sensory deficits noted SENSORIUM/ORIENTATION: Yes alert MENINGEAL SIGNS: Yes no meningeal signs Skin: COMMON NORMALS: no rashes or lesions noted GENERAL SKIN EXAM: no rashes or lesions noted Course Vital Signs: Vital signs: Vital Signs Temperature 98.0 F 11/18/24 15:23 Pulse Rate 69 11/18/24 15:23 Respiratory Rate 17 11/18/24 15:23 Blood Pressure 161/76 11/18/24 15:23 Pulse Oximetry 97 11/18/24 15:23 Oxygen Delivery Me thod Room Air 11/18/24 15:23 MDM - Extremity (Nontraumatic) Medical Decision Making Patient presented for atraumatic left lower extremity pain, that began this morning as she states she thought she stepped off her trailer wrong. On exam there was no concern for DVT as there is no swelling, coolness, pallor, or cyanosis of the leg. An x-ray was negative for any acute findings, and a venous duplex ultrasound ruled out blood clot. Lab work obtained unremarkable. Benign etiologies considered at this time with a negative workup, such as muscle strain. Encouraged her to treat conservatively at home and follow-up with primary care if she continues to have pain. She agrees to this plan, stable for discharge and no further workup necessary in the ED. Lab Data 11/18/24 17:19 11/18/24 17:19 Radiology Impressions Venous Duplex 11/18/24 19:21 IMPRESSION: No evidence of deep vein thrombosis. Knee X-Ray 11/18/24 19:22 IMPRESSION: No acute findings. Laboratory Results WBC 10.45 10^3/uL (3.29-11.43) 11/18/24 17:19 RBC 4.54 10^6/uL (3.85-5.65) 11/18/24 17:19 Hgb 13.70 g/dL (11.27-16.99) 11/18/24 17:19 Hct 41.6 % (36-47) 11/18/24 17:19 MCV 91.6 fl (85-98) 11/18/24 17:19 MCH 30.2 pg (27-33) 11/18/24 17:19 MCHC 32.9 g/dL (30-55) 11/18/24 17:19 RDW 13.1 % (12.1-15.1) 11/18/24 17:19 Plt Count 292 10^3/cmm (157-399) 11/18/24 17:19 MPV 9.1 fL (7.4-10.4) 11/18/24 17:19 Neut % (Auto) 68.5 % 11/18/24 17:19 Lymph % (Auto) 22.2 % 11/18/24 17:19 Mason % (Auto) 5.9 % 11/18/24 17:19 Eos % (Auto) 2.4 % 11/18/24 17:19 Baso % (Auto) 0.6 % 11/18/24 17:19 Neut # (Auto) 7.16 10^3/uL (1.8-7.7) 11/18/24 17:19 Lymph # (Auto) 2.3 10^3/uL (0.8-4.8) 11/18/24 17:19 Mason # (Auto) 0.6 10^3/uL (0.2-0.9) 11/18/24 17:19 Eos # (Auto) 0.3 10^3/uL (0.0-0.8) 11/18/24 17:19 Baso # (Auto) 0.1 10^3/uL (0.0-0.1) 11/18/24 17:19 Nucleated RBC % (auto) 0 % 11/18/24 17:19 Nucleated RBCs # 0.0 /100WBC 11/18/24 17:19 Sodium 141 mmol/L (136-145) 11/18/24 17:19 Potassium 3.2 mmol/L (3.5-5.1) L 11/18/24 17:19 Chloride 102 mmol/L (98-107) 11/18/24 17:19 Carbon Dioxide 27 mmol/L (22-29) 11/18/24 17:19 Anion Gap 14.2 (5-19) 11/18/24 17:19 BUN 15 mg/dL (8-23) 11/18/24 17:19 Creatinine 0.7 mg/dL (0.5-0.9) 11/18/24 17:19 GFR Calculation Not Reportable 11/18/24 17:19 Glucose 92 mg/dL (65-115) 11/18/24 17:19 Calculated Osmolality 284 mOsm/kg (285-295) L 11/18/24 17:19 Calcium 9.9 mg/dL (8.5-10.5) 11/18/24 17:19 Total Bilirubin 0.4 mg/dL (0.15-1.2) 11/18/24 17:19 AST 28 U/L (0-32) 11/18/24 17:19 ALT 35 U/L (0-33) H 11/18/24 17:19 Alkaline Phosphatase 128 U/L (35-105) H 11/18/24 17:19 Total Protein 8.5 g/dL (6.6-8.7) 11/18/24 17:19 Albumin 4.6 g/dL (3.5-5.2) 11/18/24 17:19 Globulin 4.0 g/dL (1.3-4.6) 11/18/24 17:19 All radiology interpretation(s) finalized by discharge Discharge Plan Discharge Patient Disposition: Home Clinical Impression: Muscle strain of left lower extremity Qualifiers: Encounter type: initial encounter Qualified Code(s): S86.912A - Strain of unspecified muscle(s) and tendon(s) at lower leg level, left leg, initial encounter Condition: Stable Prescriptions: No Action aspirin [Adult Aspirin Regimen] 81 mg tablet,delayed release (DR/EC) 81 mg PO DAILY potassium chloride 10 mEq tablet extended release 10 meq PO DAILY atorvastatin [Lipitor] 10 mg tablet 10 mg PO QPM tramadol 50 mg tablet 50 mg PO PRN PRN (Reason: Pain) losartan 25 mg tablet 25 mg PO DAILY hydrochlorothiazide 25 mg tablet 25 mg PO DAILY famotidine [Acid Piece Dyeing Machine Tender (famotidine)] 20 mg tablet 20 mg PO DAILY PRN (Reason: heart burn) ibuprofen 800 mg tablet 800 mg PO TID PRN amlodipine 5 mg tablet PO amoxicillin-pot clavulanate 875-125 mg tablet 1 tab PO BID 10 Days Qty: 20 0RF prednisone 20 mg tablet 20 mg PO DAILY Qty: 7 0RF Rx Instructions: Steroid medication alprazolam 0.25 mg tablet 0.25 mg PO DAILY PRN (Reason: Anxiety) 30 Days Qty: 30 2RF Discharge Orders: Discharge ED (Routine); Ordered 11/18/24 Ordered By: Otis Bragg Referrals: OCHOA Curiel, MARTY [Primary Care Provider, [facility]] Patient Instructions: Patient Portal & [place] Instructions Activity Restrictions/Additional Instructions: Muscle Strain Discharge Diagnosis: Left lower extremity pain, likely muscle strain. DVT excluded by ultrasound; knee X-ray normal. ED Treatment: Received ketorolac injection and Tizanidine pill. Prescribed hydrocodone/acetaminophen for breakthrough pain. --- Home Management: - Rest and Activity Modification: Limit use of the affected leg for the first 24?48 hours. Avoid strenuous activity and weight-bearing as tolerated. Gradually resume normal activities as pain improves, but avoid sudden increases in activity. - Ice Application: Apply a cold pack (ice and water mixture in a damp cloth preferred) to the painful area for 20?30 minutes, 3?4 times daily for the first [address] ice directly on skin to prevent cold injury. - Compression: Use a soft compression wrap if comfortable, but avoid overtightening. Monitor for signs of impaired circulation (numbness, tingling, color change). - Elevation: Elevate the leg above heart level when possible to reduce swelling. - Pain Management: - Use acetaminophen as first-line for pain control, as tolerated. - NSAIDs (e.g., ibuprofen) may be used short-term if no contraindications (avoid in patients with CKD, GI bleeding, or on anticoagulation; use lowest effective dose and shortest duration). - Hydrocodone/acetaminophen only for breakthrough pain; use sparingly and discontinue as soon as possible. - Orphenadrine and other muscle relaxants should be used with caution in older adults due to risk of sedation and falls; monitor closely if continued. - Physical Therapy and Rehabilitation: - After initial pain subsides (typically after 2?5 days), begin gentle [id number] and stretching exercises as tolerated. - Progress to strengthening and low-intensity aerobic activity (e.g., stationary cycling, aquatic exercise) as pain allows. - Avoid massage in the first 24?48 hours; after this period, massage may help with pain and recovery in older adults. - Consider referral to formal physical therapy if pain persists beyond 1?2 weeks or if functional recovery is delayed. - Fall Prevention: - Use assistive devices (cane, walker) if needed for stability. - Remove tripping hazards at home. - Monitor for balance impairment, especially in the first week after injury. --- Return Precautions: Contact your healthcare provider or return to the emergency department for any of the following: - Increasing pain, swelling, or redness - New weakness, numbness, or tingling in the leg - Inability to bear weight or walk - Signs of infection (fever, chills, drainage) - Shortness of breath, chest pain, or sudden leg swelling (to rule out DVT/PE) - Adverse medication effects (confusion, excessive sedation, GI bleeding, rash) --- Follow-Up: Routine follow-up with primary care or orthopedic provider in 1?2 weeks is recommended. Earlier evaluation if symptoms worsen or do not improve as expected. Additional Notes: - Gradual return to activity is essential; avoid rapid increases in exercise intensity. - Most muscle strains recover fully with conservative management. Print Language: Mongolian Coding Level of Care Code ED Story Editor for Gabby White
[2024-11-18] MEDS: HYDROcodone-acetaminophen 7.5-325 mg Tablet 2 TAB PO (21:00)
== END 2024-11-18 21:31 | disposition home or self-care (01) ==
PROVIDERS: Family Medicine; Emergency Provider Physician Assistant; PCP Nurse Practitioner Family
DX: S86.912A Strain of unspecified muscle(s) and tendon(s) at lower leg level, left leg, initial encounter (principal); Z79.82 Long term (current) use of aspirin; E78.5 Hyperlipidemia, unspecified; I10 Essential (primary) hypertension; X58.XXXA Exposure to other specified factors, initial encounter
CPT/HCPCS: 36415; 73562; 80053; 85025; 93971; 96372; 99284; J1885; J9999

== ENCOUNTER 2025-01-11 13:08 | Outpatient (CLI) | payer MEDICARE, OTHER, SELFPAY ==
--- NOTE | 2025-01-11 13:45 | MR_ITS ---
WS: [id number] MRI LEFT KNEE HISTORY: M22.2X2 - Patellofemoral disorders, left knee COMPARISON: Radiographs 11/18/2024 Anterior cruciate ligament: Intact. Posterior cruciate ligament: Intact. Medial collateral ligament: Fluid surrounding the MCL. MCL is being displaced from the joint. Deep meniscal femoral ligament with increased signal. No tear. Posterior lateral corner structures: Intact. Medial menisci: Intrasubstance degeneration in the posterior horn. No definite tear is identified. There is intermediate signal throughout the posterior horn. Lateral meniscus: Intact. Normal signal, size and shape. Extensor mechanism: Distal quadriceps tendon and patellar tendons are intact. Fluid and soft tissue: Large suprapatellar joint effusion. There is additional edema surrounding the knee. Small Bourgeois's cyst. Osseous and articular structures: Patellofemoral compartment: Very mild lateral subluxation of the patella. Mild narrowing of the lateral patellofemoral joint space. No marrow edema. Medial compartment: Marked narrowing of the medial compartment. Diffuse chondromalacia and loss of cartilage. Osteochondral defect measuring 9.9 mm in the medial tibial plateau. There is a large amount of surrounding edema extending throughout the tibial plateau and to the tibial metaphysis. Lateral compartment: Mild narrowing of the lateral compartment. Mild thinning and fissuring of the cartilage. MR/MR knee LT wo con* [id number] IMPRESSION: 1. Large suprapatellar joint effusion and soft tissue edema surrounding the kn ee. 2. Extensive marrow edema in the medial tibial plateau. Marrow edema surrounds an osteochondral defect measuring 9.9 mm in the tibial plateau. The marrow juana ma may be secondary to the osteochondral defect or related to recent trauma. No fracture. 3. Mild MCL sprain. MCL is being displaced to the joint line by a partially ex truded meniscus. 4. Intrasubstance degeneration throughout the posterior horn medial meniscus. No definite tear identified. 5. Marked narrowing of the medial compartment with diffuse chondromalacia. 6. Mild narrowing of the lateral compartment.
== END 2025-01-11 13:09 | disposition home or self-care (01) ==
LOC: RAD 13:09
PROVIDERS: PCP Nurse Practitioner Family; Visit Provider Nurse Practitioner Family
DX: M22.2X2 Patellofemoral disorders, left knee (principal); S83.412A Sprain of medial collateral ligament of left knee, initial encounter; X58.XXXA Exposure to other specified factors, initial encounter; M23.322 Other meniscus derangements, posterior horn of medial meniscus, left knee; M71.22 Synovial cyst of popliteal space [Baker], left knee; M94.262 Chondromalacia, left knee; R93.6 Abnormal findings on diagnostic imaging of limbs
CPT/HCPCS: 73721

== ENCOUNTER 2025-01-21 05:00 | Outpatient (CLI) | payer MEDICARE, OTHER, SELFPAY | END 2025-01-21 05:01 | disposition home or self-care (01) | LOC: SPT 02-13 11:56 | PROVIDERS: Visit Provider Student in an Organized Health Care Education/Training Program | DX: Z46.89 Encounter for fitting and adjustment of other specified devices (principal); M94.262 Chondromalacia, left knee; S83.412D Sprain of medial collateral ligament of left knee, subsequent encounter; X58.XXXD Exposure to other specified factors, subsequent encounter; M22.2X2 Patellofemoral disorders, left knee | CPT/HCPCS: 97760; 99204; L1812 ==

== ENCOUNTER 2025-01-25 13:07 | Outpatient (CLI) | payer MEDICARE, OTHER, SELFPAY ==
--- NOTE | 2025-01-25 13:20 | MM_ITS ---
WS: [id number] BILATERAL 3D TOMOSYNTHESIS DIGITAL SCREENING MAMMOGRAPHY WITH CAD CLINICAL INFORMATION: SCREENING HISTORY: Screening mammogram. No current complaints. COMPARISON: 2023 TECHNIQUE: Bilateral CC and MLO views. FINDINGS: The breasts are composed of heterogeneous fibroglandular density tissue, which can limit the detection of small underlying mass lesions. Nodular densities anterior RIGHT breast subareolar and 6 o'clock position appears new or progressed compared to previous. Recommend RIGHT breast diagnostic mammography and ultrasound. Stable LEFT breast. MM/MM [place] tomosynthesis [id number] IMPRESSION: DENSITY:The breasts are heterogeneously dense, which may obscure small masses. BI-RADS: 0 - Incomplete: Need additional imaging evaluation FOLLOW UP: Need Additional Imaging Recommend RIGHT breast diagnostic mammography and ultrasound.
== END 2025-01-25 13:08 | disposition home or self-care (01) ==
LOC: MOBLMAM 13:08
PROVIDERS: PCP Nurse Practitioner Family; Visit Provider Nurse Practitioner Family
DX: Z12.31 Encounter for screening mammogram for malignant neoplasm of breast (principal); R92.333 Mammographic heterogeneous density, bilateral breasts; R92.323 Mammographic fibroglandular density, bilateral breasts; N63.41 Unspecified lump in right breast, subareolar
CPT/HCPCS: 77063; 77067

== ENCOUNTER → 2025-02-08 10:43 | Outpatient (BNVA) | payer MEDICARE, OTHER, SELFPAY | PROVIDERS: PCP Nurse Practitioner Family; Visit Provider Student in an Organized Health Care Education/Training Program | DX: M94.262 Chondromalacia, left knee (principal); S83.412D Sprain of medial collateral ligament of left knee, subsequent encounter; M22.2X2 Patellofemoral disorders, left knee; M25.562 Pain in left knee; X58.XXXD Exposure to other specified factors, subsequent encounter; Z01.89 Encounter for other specified special examinations | CPT/HCPCS: 73560; 73565 ==

== ENCOUNTER 2025-03-09 12:18 | Outpatient (CLI) | payer MEDICARE, OTHER, SELFPAY ==
--- NOTE | 2025-03-09 12:22 | MM_ITS ---
WS: [id number] RIGHT 3D TOMOSYNTHESIS DIGITAL MAMMOGRAPHY WITH CAD CLINICAL INFORMATION: R92.8 - Other abnormal and inconclusive findings on diagn... HISTORY: Additional views COMPARISON: 01/25/2025 TECHNIQUE: 3 views of the right breast were obtained. FINDINGS: The right breast is composed of heterogeneous fibroglandular density tissue, which can limit the detection of small underlying mass lesions. Again seen are small nodular densities subareolar RIGHT breast at 6 o'clock position. Ultrasound described below ULTRASOUND BREAST RIGHT TECHNIQUE: Ultrasound right breast focused area of concern. CLINICAL INFORMATION: R92.8 - Other abnormal and inconclusive findings on diagn... FINDINGS: Ultrasound RIGHT breast subareolar and 6 o'clock position. Incidental ductal ectasia in the area of concern. Dense parenchymal tissue. No cystic or solid lesions. No suspicious lesions to target for biopsy. MM/MM diag RT tomosynthesis [id number] IMPRESSION: DENSITY: The breasts are heterogeneously dense, which may obscure small masses. BI-RADS: 2 - Benign FOLLOW UP: 1 Year Follow-up Recommend return to annual screening mammography.
--- NOTE | 2025-03-09 13:00 | US_ITS ---
WS: [id number] RIGHT 3D TOMOSYNTHESIS DIGITAL MAMMOGRAPHY WITH CAD CLINICAL INFORMATION: R92.8 - Other abnormal and inconclusive findings on diagn... HISTORY: Additional views COMPARISON: 01/25/2025 TECHNIQUE: 3 views of the right breast were obtained. FINDINGS: The right breast is composed of heterogeneous fibroglandular density tissue, which can limit the detection of small underlying mass lesions. Again seen are small nodular densities subareolar RIGHT breast at 6 o'clock position. Ultrasound described below ULTRASOUND BREAST RIGHT TECHNIQUE: Ultrasound right breast focused area of concern. CLINICAL INFORMATION: R92.8 - Other abnormal and inconclusive findings on diagn... FINDINGS: Ultrasound RIGHT breast subareolar and 6 o'clock position. Incidental ductal ectasia in the area of concern. Dense parenchymal tissue. No cystic or solid lesions. No suspicious lesions to target for biopsy. US/US breast RT limited* [id number] IMPRESSION: DENSITY: The breasts are heterogeneously dense, which may obscure small masses. BI-RADS: 2 - Benign FOLLOW UP: 1 Year Follow-up Recommend return to annual screening mammography.
== END 2025-03-09 12:19 | disposition home or self-care (01) ==
LOC: RAD 12:18
PROVIDERS: Visit Provider Nurse Practitioner Family
DX: R92.8 Other abnormal and inconclusive findings on diagnostic imaging of breast (principal); R92.333 Mammographic heterogeneous density, bilateral breasts; R92.323 Mammographic fibroglandular density, bilateral breasts; N63.15 Unspecified lump in the right breast, overlapping quadrants
CPT/HCPCS: 76642; 77061; G0279